=== PATIENT | female | born 1970 | race African-American/Black ===

== ENCOUNTER 2020-04-12 16:39 | Outpatient (CLI) | payer OTHER, SELFPAY ==
[2020-04-12 17:18] LABS: Basophils Percent Auto 0.5 % (0.2-1.2); Eosinophils Absolute Auto 0.3 K/mm3 (0-0.3); Eosinophils Percent Auto 8.8 % (0-4.4); Hematocrit 31.1 % (37.0-47.0); Hemoglobin 9.4 g/dL (12.0-15.0); Immature Granulocyte Absolute 0.01 K/mm3 (0.00-0.031); Immature Granulocyte Percent A 0.3 % (0-0.5); Lymphocytes Absolute Auto 1.83 K/mm3 (0.9-3.2); Lymphocytes Percent Auto 47.4 % (18.3-44.2); Mean Corpuscular HGB Conc 30.2 g/dl (32-36); Mean Corpuscular Hemoglobin 20.7 pg (26-34); Mean Corpuscular Volume 68.4 fl (80-100); Mean Platelet Volume 9.2 fl (7.4-10.4); Monocytes Absolute Auto 0.4 K/mm3 (0.1-0.6); Monocytes Percent Auto 11.4 % (2.6-8.5); Neutrophils Absolute Auto 1.2 K/mm3 (1.3-6.7); Neutrophils Percent Auto 31.6 % (45.5-73.1); Platelet Count Result 374 k/mm3 (150-375); Red Blood Count 4.55 M/mm3 (4.2-5.4); Red Cell Distribution Width 18.7 % (11.5-14.5); White Blood Count 3.9 K/mm3 (4.5-10.0)
[2020-04-12 17:30] LABS: Hemoglobin A1C 5.6 % (<5.7)
[2020-04-12 17:31] LABS: Anion Gap 8 mmol/L (8-16); Blood Urea Nitrogen 13 mg/dL (7-17); Calcium 9.1 mg/dL (8.4-10.2); Carbon Dioxide 27 mmol/L (22-30); Chloride 103 mmol/L (98-107); Cholesterol 213 mg/dL (0-200); Estimated Glomerular Filt Rate > 60; Glucose 108 mg/dL (65-105); HDL Direct 65 mg/dL; Potassium 3.6 mmol/L (3.4-5.0); Sodium 138 mmol/L (137-145); Triglycerides 74 mg/dL (<150)
[2020-04-12 17:42] LABS: LDL Cholesterol Direct 110 mg/dL
[2020-04-12 18:26] LABS: MALB Creatinine Ratio < 5.3 mg/g (0-30); Microalbumin Urine Random < 6.0 mg/L (0-16.7)
== END 2020-04-12 16:40 | disposition home or self-care (01) ==
DX: N92.0 Excessive and frequent menstruation with regular cycle (principal); Z13.220 Encounter for screening for lipoid disorders
CPT/HCPCS: 36415; 80048; 80061; 82043; 83036; 85025

== ENCOUNTER 2020-06-22 10:25 | Outpatient (CLI) | payer OTHER, SELFPAY ==
[2020-06-22 10:51] LABS: Basophils Percent Auto 0.7 % (0.2-1.2); Eosinophils Absolute Auto 0.3 K/mm3 (0-0.3); Eosinophils Percent Auto 5.4 % (0-4.4); Hemoglobin 13.1 g/dL (12.0-15.0); Immature Granulocyte Absolute 0.01 K/mm3 (0.00-0.031); Immature Granulocyte Percent A 0.2 % (0-0.5); Lymphocytes Absolute Auto 1.37 K/mm3 (0.9-3.2); Lymphocytes Percent Auto 25.5 % (18.3-44.2); Mean Corpuscular HGB Conc 31.2 g/dl (32-36); Mean Corpuscular Hemoglobin 23.9 pg (26-34); Mean Corpuscular Volume 76.6 fl (80-100); Mean Platelet Volume 8.6 fl (7.4-10.4); Monocytes Absolute Auto 0.6 K/mm3 (0.1-0.6); Monocytes Percent Auto 11.7 % (2.6-8.5); Neutrophils Percent Auto 56.5 % (45.5-73.1); Platelet Count Result 291 k/mm3 (150-375); Red Blood Count 5.48 M/mm3 (4.2-5.4); Red Cell Distribution Width 20.5 % (11.5-14.5); White Blood Count 5.4 K/mm3 (4.5-10.0)
[2020-06-22 10:55] LABS: Add Urine Microscopic? NO; Appearance Urine Clear (Clear); Bilirubin Urine Negative (Negative); Blood Urine Negative (Negative); Color Urine Yellow (Yellow); Glucose Urine UA Negative (Negative); Ketones Urine Negative (Negative); Leukocyte Esterase Ur Negative LEU/UL (NEGATIVE); Nitrate Urine Negative (Negative); Protein Urine Negative (Negative); RBC Urine 0-2 /hpf (0-2); Squamous Epithelial Cell Urine Occasional /hpf (Few); Urobilinogen Urine Negative mg/dL (<2.0); WBC Urine 0-3 /hpf (0-3)
[2020-06-22 11:05] LABS: Alanine Aminotransferase 25 U/L (4-35); Albumin Level 4.6 g/dL (3.5-5.1); Alkaline Phosphatase 44 U/L (38-126); Anion Gap 5 mmol/L (8-16); Aspartate Amino Transferase 28 U/L (14-36); Bilirubin,Total 0.7 mg/dL (0.2-1.3); Blood Urea Nitrogen 13 mg/dL (7-17); Calcium 9.8 mg/dL (8.4-10.2); Carbon Dioxide 29 mmol/L (22-30); Chloride 104 mmol/L (98-107); Estimated Glomerular Filt Rate > 60; Glucose 114 mg/dL (65-105); Potassium 3.8 mmol/L (3.4-5.0); Sodium 138 mmol/L (137-145)
[2020-06-22 11:42] LABS: Iron 148 ug/dL (37-170)
[2020-06-22 11:53] LABS: Percent Iron Saturation 36 % (20-50)
== END 2020-06-22 10:26 | disposition home or self-care (01) ==
DX: R10.11 Right upper quadrant pain (principal); J45.20 Mild intermittent asthma, uncomplicated; D50.9 Iron deficiency anemia, unspecified; I10 Essential (primary) hypertension; Z00.00 Encounter for general adult medical examination without abnormal findings
CPT/HCPCS: 36415; 80053; 81003; 83540; 83550; 85025

== ENCOUNTER 2021-06-20 10:37 | Outpatient (CLI) | payer OTHER, SELFPAY ==
[2021-06-20 11:07] LABS: Basophils Percent Auto 0.8 % (0.2-1.2); Eosinophils Absolute Auto 0.2 K/mm3 (0-0.3); Hemoglobin 11.9 g/dL (12.0-15.0); Immature Granulocyte Absolute 0.01 K/mm3 (0.00-0.031); Immature Granulocyte Percent A 0.3 % (0-0.5); Lymphocytes Absolute Auto 1.94 K/mm3 (0.9-3.2); Lymphocytes Percent Auto 50.3 % (18.3-44.2); Mean Corpuscular HGB Conc 32.2 g/dl (32-36); Mean Corpuscular Hemoglobin 24.4 pg (26-34); Mean Platelet Volume 8.8 fl (7.4-10.4); Monocytes Absolute Auto 0.4 K/mm3 (0.1-0.6); Monocytes Percent Auto 9.8 % (2.6-8.5); Neutrophils Absolute Auto 1.3 K/mm3 (1.3-6.7); Neutrophils Percent Auto 32.8 % (45.5-73.1); Platelet Count Result 353 k/mm3 (150-375); Red Blood Count 4.87 M/mm3 (4.2-5.4); Red Cell Distribution Width 14.4 % (11.5-14.5); White Blood Count 3.9 K/mm3 (4.5-10.0)
[2021-06-20 11:18] LABS: Alanine Aminotransferase 28 U/L (4-35); Albumin Level 4.5 g/dL (3.5-5.1); Alkaline Phosphatase 40 U/L (38-126); Anion Gap 7 mmol/L (8-16); Aspartate Amino Transferase 30 U/L (14-36); Bilirubin,Total 0.6 mg/dL (0.2-1.3); Blood Urea Nitrogen 12 mg/dL (7-17); Calcium 9.9 mg/dL (8.4-10.2); Carbon Dioxide 30 mmol/L (22-30); Chloride 100 mmol/L (98-107); Cholesterol 207 mg/dL (0-200); Estimated Glomerular Filt Rate > 60; Glucose 110 mg/dL (65-110); HDL Direct 70 mg/dL; Potassium 3.6 mmol/L (3.4-5.0); Sodium 137 mmol/L (137-145); Triglycerides 81 mg/dL (<150)
[2021-06-20 11:29] LABS: LDL Cholesterol Direct 102 mg/dL
[2021-06-20 11:31] LABS: Hemoglobin A1C 5.4 % (<5.7)
[2021-06-20 11:48] LABS: Thyroid Stimulating Hormone 0.828 uIU/mL (0.465-4.680)
[2021-06-20 11:51] LABS: Vitamin D 25 Hydroxy 51.8 ng/mL
== END 2021-06-20 10:38 | disposition home or self-care (01) ==
LOC: ANHLAB 10:42
PROVIDERS: PCP Obstetrics & Gynecology; Visit Provider Obstetrics & Gynecology
DX: Z00.00 Encounter for general adult medical examination without abnormal findings (principal)
CPT/HCPCS: 36415; 80053; 80061; 82306; 83036; 84443; 85025

== ENCOUNTER 2022-09-19 08:48 | Outpatient (CLI) | payer OTHER, SELFPAY ==
[2022-09-19 09:09] LABS: Hematocrit 33.3 % (37.0-47.0); Mean Corpuscular Hemoglobin 20.9 pg (26-34); Mean Corpuscular Volume 69.7 fl (80-100); Mean Platelet Volume 8.7 fl (7.4-10.4); Platelet Count Result 340 k/mm3 (150-375); Red Blood Count 4.78 M/mm3 (4.2-5.4); Red Cell Distribution Width 18.2 % (11.5-14.5); White Blood Count 6.2 K/mm3 (4.5-10.0)
[2022-09-19 09:24] LABS: Alanine Aminotransferase 23 U/L (6-35); Albumin Level 4.4 g/dL (3.5-5.1); Alkaline Phosphatase 48 U/L (38-126); Anion Gap 5 mmol/L (8-16); Aspartate Amino Transferase 25 U/L (14-36); Bilirubin,Total 0.4 mg/dL (0.2-1.3); Blood Urea Nitrogen 21 mg/dL (7-17); Carbon Dioxide 27 mmol/L (22-30); Chloride 100 mmol/L (98-107); Cholesterol 193 mg/dL (0-200); Estimated Glomerular Filt Rate > 60; Glucose 108 mg/dL (65-110); HDL Direct 61 mg/dL; Potassium 3.6 mmol/L (3.4-5.0); Sodium 132 mmol/L (137-145); Triglycerides 82 mg/dL (<150)
[2022-09-19 09:28] LABS: Hemoglobin A1C 5.8 % (<5.7)
[2022-09-19 09:35] LABS: LDL Cholesterol Direct 88 mg/dL
[2022-09-19 09:53] LABS: Vitamin D 25 Hydroxy 45.4 ng/mL
[2022-09-19 09:54] LABS: Thyroid Stimulating Hormone 0.762 uIU/mL (0.465-4.680)
[2022-09-19 10:31] LABS: Creatinine Urine 232.4 mg/dL
[2022-09-19 10:35] LABS: MALB Creatinine Ratio 40.8 mg/g (0-30); Microalbumin Urine Random 94.9 mg/L (0-16.7)
== END 2022-09-19 08:49 | disposition home or self-care (01) ==
LOC: ANHLAB 08:49
PROVIDERS: PCP Obstetrics & Gynecology; Visit Provider Obstetrics & Gynecology
DX: R53.83 Other fatigue (principal); Z13.220 Encounter for screening for lipoid disorders; R39.9 Unspecified symptoms and signs involving the genitourinary system
CPT/HCPCS: 36415; 80053; 80061; 82043; 82306; 83036; 84443; 85027

== ENCOUNTER 2023-03-06 10:24 | Outpatient (CLI) | payer OTHER, SELFPAY ==
[2023-03-06 11:03] LABS: Hematocrit 39.2 % (37.0-47.0); Hemoglobin 12.2 g/dL (12.0-15.0); Mean Corpuscular HGB Conc 31.1 g/dl (32-36); Mean Corpuscular Hemoglobin 24.4 pg (26-34); Mean Corpuscular Volume 78.4 fl (80-100); Mean Platelet Volume 9.3 fl (7.4-10.4); Platelet Count Result 316 k/mm3 (150-375); Red Cell Distribution Width 18.6 % (11.5-14.5); White Blood Count 3.5 K/mm3 (4.5-10.0)
[2023-03-06 11:14] LABS: Alanine Aminotransferase 33 U/L (6-35); Albumin Level 4.3 g/dL (3.5-5.1); Alkaline Phosphatase 44 U/L (38-126); Anion Gap 5 mmol/L (8-16); Aspartate Amino Transferase 30 U/L (14-36); Bilirubin,Total 0.6 mg/dL (0.2-1.3); Blood Urea Nitrogen 15 mg/dL (7-17); Calcium 9.3 mg/dL (8.4-10.2); Carbon Dioxide 31 mmol/L (22-30); Chloride 103 mmol/L (98-107); Estimated Glomerular Filt Rate > 60; Glucose 109 mg/dL (65-110); Potassium 3.7 mmol/L (3.4-5.0); Sodium 139 mmol/L (137-145)
[2023-03-06 11:15] LABS: Cholesterol 224 mg/dL (0-200); HDL Direct 67 mg/dL; Triglycerides 72 mg/dL (<150)
[2023-03-06 11:26] LABS: LDL Cholesterol Direct 108 mg/dL
[2023-03-06 11:29] LABS: Hemoglobin A1C 5.7 % (<5.7)
[2023-03-06 11:30] LABS: Iron 63 ug/dL (37-170)
[2023-03-06 11:41] LABS: Percent Iron Saturation 15 % (20-50)
== END 2023-03-06 10:25 | disposition home or self-care (01) ==
LOC: ANHLAB 10:25
PROVIDERS: PCP Obstetrics & Gynecology; Visit Provider Family Medicine
DX: K44.9 Diaphragmatic hernia without obstruction or gangrene (principal); R00.2 Palpitations; R07.9 Chest pain, unspecified; R10.13 Epigastric pain
CPT/HCPCS: 36415; 80053; 80061; 83036; 83540; 83550; 85027

== ENCOUNTER 2023-04-18 21:43 | Observation (INO) | payer OTHER, SELFPAY ==
[2023-04-18] VITALS (12 sets, daily range): BP systolic 130–180; BP diastolic 85–99; PULSE 61–85; RESP 9–98; TEMP 36.6; O2SAT 97–100
--- NOTE | ~2023-04-18 | CT_ITS ---
Non-contrast CT scan of the Abdomen Clinical indication: Epigastric pain Technique: 2.5 mm axial scans were obtained through the abdomen without intravenous or oral contrast . Dose reduction technique was used on this scan by utilizing automated exposure control and iterativ e reconstruction technique. The dose-length product (DLP) was 482.05 mGy-cm. Findings: Images through the lung bases reveal no abnormalities. There is no evidence of renal or ureteral calculi. The kidneys and the ureters are nondilated. The liver, spleen, pancreas, gallbladder, and right adrenal gland appear normal. Possible small left adrenal adenoma. There is no aortic aneurysm. Visualized bowel loops are unremarkable. No ascites. Impression: No acute abnormality. Possible small left adrenal adenoma. Reviewed, dictated and finalized at location . Impression: No acute abnormality. Possible small left adrenal adenoma.
--- NOTE | ~2023-04-18 | XR_ITS ---
Clinical Indication: Chest pressure PA and lateral views of the chest: Comparison: 03/04/2016 Findings: The lungs are clear, without evidence of focal consolidation or pleural effusion. Cardiome diastinal silhouette is within normal limits. Bones and soft tissues are unremarkable. Impression: Normal chest. Reviewed, dictated and finalized at location . Impression: Normal chest.
--- NOTE | 2023-04-18 21:44 | ECG_ITS ---
Measurements Intervals [place] Rate: 69 P: 30 TX: 185 QRS: 11 QRSD: 93 T: 12 QT: 421 QTc: 451 Interpretive Statements SINUS RHYTHM VOLTAGE CRITERIA FOR LVH BORDERLINE T WAVE ABNORMALITY- ANT/INF LEADS BORDERLINE ECG NO PREVIOUS ECG AVAILABLE FOR COMPARISON Electronically Signed On 04-19-2023 6:23:51 CDT by Justo Curtis D.O.
[2023-04-18 22:03] LABS: Basophils Percent Auto 0.6 % (0.2-1.2); Eosinophils Absolute Auto 0.5 K/mm3 (0-0.3); Eosinophils Percent Auto 10.9 % (0-4.4); Hematocrit 39.7 % (37.0-47.0); Hemoglobin 12.7 g/dL (12.0-15.0); Immature Granulocyte Absolute 0.01 K/mm3 (0.00-0.031); Immature Granulocyte Percent A 0.2 % (0-0.5); Lymphocytes Percent Auto 47.1 % (18.3-44.2); Mean Corpuscular Hemoglobin 25.4 pg (26-34); Mean Corpuscular Volume 79.4 fl (80-100); Mean Platelet Volume 9.4 fl (7.4-10.4); Monocytes Absolute Auto 0.5 K/mm3 (0.1-0.6); Monocytes Percent Auto 10.1 % (2.6-8.5); Neutrophils Absolute Auto 1.5 K/mm3 (1.3-6.7); Neutrophils Percent Auto 31.1 % (45.5-73.1); Platelet Count Result 295 k/mm3 (150-375); Red Cell Distribution Width 16.5 % (11.5-14.5); White Blood Count 4.7 K/mm3 (4.5-10.0)
[2023-04-18 22:14] LABS: Prothrombin Time 13.1 Seconds (11.1-14.7)
[2023-04-18 22:15] LABS: Partial Thromboplastin Time 27.6 SECONDS (22.3-36.8)
[2023-04-18 22:16] LABS: Alanine Aminotransferase 32 U/L (6-35); Albumin Level 4.7 g/dL (3.5-5.1); Alkaline Phosphatase 49 U/L (38-126); Anion Gap 6 mmol/L (8-16); Aspartate Amino Transferase 35 U/L (14-36); Bilirubin,Total 0.4 mg/dL (0.2-1.3); Blood Urea Nitrogen 15 mg/dL (7-17); Calcium 9.8 mg/dL (8.4-10.2); Carbon Dioxide 31 mmol/L (22-30); Chloride 101 mmol/L (98-107); Estimated CRCL calculation 71 ml/min; Estimated Glomerular Filt Rate > 60; Glucose 109 mg/dL (65-110); Lipase 67 U/L (23-300); Potassium 3.9 mmol/L (3.4-5.0); Sodium 138 mmol/L (137-145)
[2023-04-18 22:28] LABS: Troponin I < 0.012 ng/mL (0.000-0.034)
[2023-04-18] MEDS: ONDANSETRON INJ 4 MG/2 ML VIAL IV PUSH (22:46)
--- NOTE | 2023-04-18 22:58 | ED.CHESTPAIN ---
HPI - Chest Pain General Chief Complaint: Chest Pain Stated Complaint: chest pressure Time Seen by Provider: 04/18/23 21:48 History of Present Illness HPI narrative: Patient presents to the emergency department with chest pain. Pain has not been ongoing for the past couple hours. Epigastric region radiates into her midsternal chest area. Nothing alleviates or worsens the pain. She has been taking home GI medications without improvement. Denies shortness of breath fevers chills or cough. Denies history of CAD. Denies family history of early CAD. Patient does not smoke. She is very pleasant and overall her exam is grossly benign. Related Data Home Medications Medication Instructions Recorded Confirmed esomeprazole magnesium 20 mg 20 mg PO DAILY PRN 02/23/23 capsule,delayed release (Nexium 24HR) hydrochlorothiazide 25 mg tablet 25 mg PO DAILY 02/23/23 Allergies Allergy/AdvReac Type Severity Reaction Status Date / Time Penicillins Allergy Unknown Unknown Verified 04/18/23 22:08 Review of Systems Review of Systems: CONSTITUTIONAL: Denies fever, chills, or sweats. EYES: Denies visual changes, redness, or discharge. ENT: Denies rhinorrhea, congestion, sore throat, or otalgia. CARDIOVASCULAR: Denies palpitations, or edema. Positive for chest pain RESPIRATORY: Denies cough or dyspnea. GASTROINTESTINAL: Denies abdominal pain, nausea, vomiting, or diarrhea. GENITOURINARY: Denies dysuria or hematuria. SKIN: Denies rash or itching. MUSCULOSKELETAL: Denies back pain, joint pain, or myalgia. NEUROLOGIC: Denies headache, numbness, or weakness. PSYCHIATRIC: Denies anxiety or depression. [facility] Past Medical History Medical History (Updated 04/18/23 @ 23:02 by Betty Real MD) Active asthma BP (high blood pressure) GERD (gastroesophageal reflux disease) Family History Family History (System 03/01/23 @ 13:31 by Beth Lorenzo) Father Hypertension Cerebrovascular accident Mother Hypertension Grandparent Diabetes mellitus Social History Social History (System 03/01/23 @ 13:31 by Beth Lorenzo) Smoking packs per day: 0 Smoking cigarettes per day: 0.0 Years smoked: 0 Smoking pack-years: 0.00 Smoking status: Never smoker Second hand tobacco smoke exposure: No Alcohol intake: current Drinks per week: 1 Substance use: never Substance use type: does not use Lack of Transportation: No Lack of Food: Never True Current Housing: I Have Housing Concerned About Future Housing: No Difficulty Paying Gas/Electric Bills: No Difficulty Paying for Meds: No Currently Unemployed: No Education: Master's Degree or Higher Difficulty w/ Childcare or Family Care: No Exam Narrative: GENERAL: Well-appearing, well-nourished, and in no acute distress. HEAD: Normocephalic, atraumatic. EYES: PERRLA and EOMI. ENT: Nares clear, no rhinorrhea or epistaxis. Mucous membranes moist. NECK: Supple. CHEST: Clear to auscultation. No respiratory distress. HEART: Regular rate and rhythm. ABDOMEN: mild epigastric tenderness EXTREMITIES: Normal range of motion. No edema. SKIN: Warm, dry, no rash. NEURO: No focal deficits. Alert and oriented x3. PSYCH: Normal mood and affect. Course Course Emergency Course: Differential diagnosis includes but not limited to pancreatitis, CAD, chest wall pain, reflux Telemetry ordered due to chest pain to evaluate for dysrhythmias. Evaluated by myself. Rhythm nsr Rate 60 Vital Signs Vital signs: Vital Signs Temperature 36.6 C 04/18/23 22:01 Pulse Rate 67 04/18/23 22:01 Respiratory Rate 17 04/18/23 22:01 Blood Pressure 180/97 H 04/18/23 22:01 Pulse Oximetry 99 04/18/23 22:01 Oxygen Delivery Room Air 04/18/23 22:01 Temperature 36.6 C 04/18/23 22:01 Pulse Rate 62 04/19/23 03:21 Respiratory Rate 13 04/19/23 03:21 Blood Pressure 123/77 04/19/23 03:21 Pulse Oximetry 98 04/19/23 03:21 Oxygen D
[2023-04-18] MEDS: ASPIRIN 81 MG CHEWABLE TABLET 324 MG PO (23:22)
[2023-04-18] MEDS: NITROGLYCERIN SL 0.4 MG TABLET SUBLINGUAL (23:24)
--- NOTE | 2023-04-18 23:26 | PC.NURSE ---
2324 - pt rates pressure 5/10. pt took first sublingual nitro with no relief. 2329 - pt took second sublingual nitro w relief. States pressure is 2/10 on pain scale and feels as if she can take a deeper breath , but experiencing headache. notified.
[2023-04-19] VITALS (29 sets, daily range): BP systolic 114–164; BP diastolic 55–96; PULSE 54–86; RESP 10–19; TEMP 35.8–37.3; O2SAT 95–100
[2023-04-19 01:33] LABS: Troponin I < 0.012 ng/mL (0.000-0.034)
[2023-04-19] MEDS: LIDOCAINE HCL 2% VISC SOLN 15 ML UDC PO (01:40)
--- NOTE | 2023-04-19 02:18 | ECG_ITS ---
Measurements Intervals [place] Rate: 59 P: 35 MA: 182 QRS: 26 QRSD: 93 T: 43 QT: 397 QTc: 396 Interpretive Statements SINUS BRADYCARDIA VOLTAGE CRITERIA FOR LVH BORDERLINE ST-T WAVE ABNORMALITY- DIFUSE LEADS BORDERLINE ECG COMPARED TO ECG 04/18/2023 21:48:59 SINUS BRADYCARDIA NOW PRESENT Electronically Signed On 04-19-2023 6:33:30 CDT by Justo Curtis D.O.
[2023-04-19] MEDS: NITROGLYCERIN SL 0.4 MG TABLET SUBLINGUAL (02:27)
--- NOTE | 2023-04-19 02:31 | PC.NURSE ---
This RN entered pt room and pt was tearful w/c/o epigastric tightness/pressure. EDP was notified and ordered another dose of sublingual nitro. Pt was given nitro and had relief with x1 pill. Notified .
[2023-04-19] MEDS: ACETAMINOPHEN 325 MG TABLET 650 MG PO (03:54)
[2023-04-19] MEDS: NITROGLYCERIN OINTMENT 1 INCH DOSE 0.5 INCH TRANSDERM (03:55)
--- NOTE | 2023-04-19 04:35 | ADMGEN ---
This patient, Eran Clark, was admitted to IMU Room 210-01 at 0428. Patient/family oriented to hospital policies and general routines including ID bracelet, bed and alarms, visiting hours, pain management, procedures, bathroom and other care routines, personal items, smoking policy, room service/diet, and visiting hours. Information on how to activate the Rapid Response Team has been discussed. Patient/Family are encouraged to report perceived risks to care and to ask questions if they do not understand what they are told or what they should do.
[2023-04-19 05:27] LABS: Troponin I 0.035 ng/mL (0.000-0.034)
--- NOTE | 2023-04-19 08:49 | PM.CNCAR ---
Assessment and Plan Assessment and plan (1) Chest pain: Qualifiers: Chest pain type: other chest pain Qualified Code(s): R07.89 - Other chest pain Code(s): R07.9 - Chest pain, unspecified Status: Acute Plan this is a 52-year-old lady without previous cardiac history is with hypertension being managed with thiazide. Been having intermittent nonexertional chest pain for about a month. Concern regarding coronary disease is now present because of this symptoms, modest troponin elevation and precordial T-wave abnormality. After discussing this with the patient my recommendation is to proceed with a coronary angiogram. She understands this and is agreeable. Chris Haskins MD [facility] History of Present Illness History of Present Illness Consult date/time: 04/19/23 08:49 Reason For Visit: Chest Pain Narrative: This is a 52-year-old female with a history of hypertension being treated with hydrochlorothiazide but no prior cardiac history. She came to the hospital yesterday because of chest pain. Patient has been having episodes of intermittent nonexertional chest discomfort for about a month or so. The episodes are described as a central pressure-like pain in the substernal region that seems to be intermittently occurring without exertional activity. She was considering that this had to do with esophageal reflux and has increased dosage of famotidine that she was taking for this without any improvement. Yesterday she had symptoms of this nature that were present for most of the day for she came into the emergency room for evaluation. In the emergency room her electrocardiogram was negative as were her troponins and she was essentially asymptomatic and admitted to the hospital. Following admission it was noted that her 3rd troponin level was slightly out of normal range. Her 2nd EKG showed some nonspecific but new precordial T-wave inversions. In this setting I am seeing her in consultation. Review of Systems Constitutional: Constitutional: Reports no additional constitutional complaints Eyes: Eyes: Reports no additional eye complaints ENT: Reports system reviewed and no additional complaints, except as documented Cardiovascular: Cardiovascular: Reports as per HPI Respiratory: Respiratory: Reports no additional respiratory complaints Gastrointestinal: Gastrointestinal: Reports no additional gastrointestinal complaints Musculoskeletal: Musculoskeletal: Reports no additional musculoskeletal complaints Integumentary/Breasts: Skin/Breast: Reports system reviewed and no additional complaints, except as docu Neurologic: Reports system reviewed and no additional complaints, except as documented Endocrine: Endocrine: Reports no additional endocrine complaints Hematologic/Lymphatic: Hematologic/Lymphatic: Reports no additional hematologic/lymphatic complaints Allergic/Immunologic: Allergic/Immunologic: Reports no additional allergic/immunologic complaints [facility] Past Medical History Medical History (Updated 04/18/23 @ 23:02 by Betty Real MD) Active asthma BP (high blood pressure) GERD (gastroesophageal reflux disease) Family History Family History (Updated 04/19/23 @ 04:53 by Cierra Poole RN) Father Hypertension Cerebrovascular accident Multiple myeloma Mother Hypertension Grandparent Diabetes mellitus Sibling Multiple myeloma Social History Social History (System 03/01/23 @ 13:31 by Beth Lorenzo) Smoking packs per day: 0 Smoking cigarettes per day: 0.0 Years smoked: 0 Smoking pack-years: 0.00 Smoking status: Never smoker Second hand tobacco smoke exposure: No Alcohol intake: current Drinks per week: 1 Substance use: current Substance use type: does not use Lack of Transportation: No Lack of Food: Never True Current Housing: I Have Housing Concerned About Future Housing: No Difficulty Paying Gas/Electric Bills: No Difficulty
--- NOTE | 2023-04-19 08:55 | WPDMODSED ---
Moderate Sedation Note-Pt Data Patient Data Diagnosis: intermittent chest pain Present Complaint: intermittent nonexertional chest pain Procedure to be performed/Plan: left heart catheterization Allergies Allergy/AdvReac Type Severity Reaction Status Date / Time Penicillins Allergy Unknown Unknown Verified 04/18/23 22:08 Home Medications Medication Instructions Recorded Confirmed Type hydrochlorothiazide 25 mg tablet 25 mg PO DAILY 02/23/23 04/19/23 History albuterol sulfate 90 mcg/actuation 1 puff inhalation QID PRN SOB 04/19/23 04/19/23 History aerosol inhaler famotidine 20 mg tablet (Pepcid) 20 mg PO BID 04/19/23 04/19/23 History Sedation/Anesthesia: No previous sedation/anesthesia problems (including family history). [facility] Past Medical History Medical History (Updated 04/18/23 @ 23:02 by Betty Real MD) Active asthma BP (high blood pressure) GERD (gastroesophageal reflux disease) Family History Family History (Updated 04/19/23 @ 04:53 by Cierra Poole RN) Father Hypertension Cerebrovascular accident Multiple myeloma Mother Hypertension Grandparent Diabetes mellitus Sibling Multiple myeloma Social History Social History (System 03/01/23 @ 13:31 by Beth Lorenzo) Smoking packs per day: 0 Smoking cigarettes per day: 0.0 Years smoked: 0 Smoking pack-years: 0.00 Smoking status: Never smoker Second hand tobacco smoke exposure: No Alcohol intake: current Drinks per week: 1 Substance use: current Substance use type: does not use Lack of Transportation: No Lack of Food: Never True Current Housing: I Have Housing Concerned About Future Housing: No Difficulty Paying Gas/Electric Bills: No Difficulty Paying for Meds: No Currently Unemployed: No Education: Master's Degree or Higher Difficulty w/ Childcare or Family Care: No Spiritual care concerns: No Mod Sed Physical Exam Physical Exam Pre Procedural Exam: Normal: Appearance, Neck, Throat, Airway, Lungs, Heart Size, Heart Rate, Heart Rhythm, Neuro Exam and Extremities Hours since solid foods: 12 Hours since liquid intake: 12 Mallampati Classification: class II Internal Medicine - PN: Obj Da Vital Signs Vital Signs: Vital Signs - 24 hr 04/18/23 22:01 04/18/23 22:08 04/18/23 23:20 Temperature 36.6 C Pulse Rate 67 68 Respiratory Rate 17 98 H Blood Pressure 180/97 H 156/87 H Pulse Oximetry 99 98 97 Oxygen Delivery Room Air Room Air 04/18/23 23:28 04/18/23 23:32 04/18/23 22:11 Temperature Pulse Rate 63 81 65 Respiratory Rate 16 16 15 Blood Pressure 146/97 H 130/90 170/99 H Pulse Oximetry 100 97 97 Oxygen Delivery 04/18/23 22:38 04/18/23 22:41 04/18/23 23:01 Temperature Pulse Rate 72 82 61 Respiratory Rate 18 19 10 L Blood Pressure 170/97 H 167/93 H 152/85 H Pulse Oximetry 100 98 98 Oxygen Delivery 04/18/23 23:21 04/18/23 23:28 04/18/23 23:33 Temperature Pulse Rate 62 65 85 Respiratory Rate 11 L 9 L 14 Blood Pressure 156/87 H 146/97 H 130/90 Pulse Oximetry 100 99 99 Oxygen Delivery 04/18/23 23:41 04/19/23 00:01 04/19/23 00:21 Temperature Pulse Rate 69 65 62 Respiratory Rate 9 L 10 L 12 Blood Pressure 135/86 141/82 H 128/81 Pulse Oximetry 99 99 99 Oxygen Delivery 04/19/23 00:41 04/19/23 01:21 04/19/23 02:08 Temperature Pulse Rate 60 60 74 Respiratory Rate 15 14 14 Blood Pressure 139/78 144/83 H 164/96 H Pulse Oximetry 100 98 98 Oxygen Delivery 04/19/23 02:24 04/19/23 02:32 04/19/23 01:41 Temperature Pulse Rate 70 80 82 Respiratory Rate 18 14 14 Blood Pressure 162/87 H 134/88 153/88 H Pulse Oximetry 100 97 97 Oxygen Delivery 04/19/23 02:01 04/19/23 02:09 04/19/23 02:25 Temperature Pulse Rate 69 78 65 Respiratory Rate 16 19 13 Blood Pressure 151/89 H 164/96 H 162/87 H Pulse Oximetry 98 100 100 Oxygen Delivery 04/19/23 02:32 04/19/23 02:41 04/19/23 03:01 Temper
--- NOTE | 2023-04-19 10:50 | PC.NURSE ---
Patient off floor to research laboratory manager.
--- NOTE | 2023-04-19 12:17 | P.PCNCC_ITS ---
Cardiac Cath Procedure Note Date of procedure:: 04/19/23 Performing physician:: Chris Haskins MD Indication:: chest pain with modest troponin elevation Brief clinical history:: this is a 52-year-old lady with history of mild hypertension who entered the hospital with an episode of chest pain. Following the incident there was a modest rise in her troponin level and very modest but the new T T-wave inversion noted electrocardiographically. For this reason an angiogram has been recommended Procedure Procedure performed:: left ventriculogram coronary angiogram Angio-Seal to right femoral artery Sedation/Medication given:: fentanyl 50 mg Versed 2 mg case start time 11:59 a.m. case end time 12:14 p.m. sedation provided by Daina Murry RN, trained observer Access site:: right femoral artery Estimated blood loss:: 20 cc Procedure note:: patient was brought to the cardiac catheterization lab in the postabsorptive s maddox where the right femoral triangle was prepared and draped in the normal fashion. Anesthesia was provided with 1% lidocaine infiltrated normally. Using the modified Seldinger technique a 5 [place] sheath was placed into the right femoral artery and after this left heart catheterization was carried out. I used a 5 [place] angled pigtail catheter to document left-sided hemodynamics and to engage left ventricle in end for injection GASTELUM projection. Following this the left coronary was engaged Using a 5 [place] FL4 catheter and injected in multiple projections. The right coronary artery was engaged and injected using standard JR4 catheter in orthogonal projections. following this the case was terminated the cineangiograms were reviewed. An angiogram was performed to the femoral artery through the sheath after which a 6 [place] Angio-Seal device was deployed with a good hemostatic result. There were no signs of any procedural complications and no evidence hematoma upon completion of the procedure Findings:: hemodynamics: Central aortic pressure 82827 left ventricle 152/0 end- diastolic pressure 8 there is no gradient on pullback across the aortic valve. Left ventricle: The LV is normal in size all segments contract properly the global ejection fraction is 65% with no regional wall motion abnormalities. The left main coronary artery is widely patent and of normal caliber. The left anterior descending is a moderate caliber artery extending down to the apex the LAD and its branches are smooth and angiographically normal. The circumflex is a medium caliber vessel giving rise to the marginal branches the circumflex system is smooth and angiographically normal. The right coronary artery is large in caliber and dominant to the posterior circulation. The RCA is also smooth and angiographically normal. Conclusion:: 1. right coronary artery dominant circulation with no angiographic abnormalities 2. normal left ventricular systolic contractility Chris Haskins MD [facility]
--- NOTE | 2023-04-19 12:30 | SUR.PHASEII ---
Arrives in PATIENT REGISTRATION REPRESENTATIVE post cardiac cath. Vitals stable. Arterial puncture site d/i with Angioseal. No pain, bleeding, swelling or bruising rt groin. Rt pedal pulse strong and regular.
[2023-04-19] MEDS: SODIUM CHLORIDE 0.9% IV 1,000 ML 125 ML IV CONT (13:32)
--- NOTE | 2023-04-19 14:51 | PM.DS ---
DS: Admitting Diagnosis Discharge Date 04/19/23 Admitting Diagnosis chest pain DS: Discharge Diagnosis Discharge Diagnosis (1) Chest pain: Qualifiers: Chest pain type: other chest pain Qualified Code(s): R07.89 - Other chest pain Code(s): R07.9 - Chest pain, unspecified Status: Acute Assessment and Plan: This is a 52-year-old lady without previous cardiac history is with hypertension being managed with thiazide. She has been having intermittent nonexertional chest pain for about a month. Concern regarding coronary disease is now present because of this symptoms, modest troponin elevation and precordial T-wave abnormality. She was taken to the manufacturing laborer for coronary angiogram and she was not found to have any coronary artery disease. No further cardiac workup recommended at this time. Okay for discharge today. DS: Summary Hospital Course Hospital Course: This is a 52-year-old lady without previous cardiac history is with hypertension being managed with thiazide. Been having intermittent nonexertional chest pain for about a month. Concern regarding coronary disease is now present because of this symptoms, modest troponin elevation and precordial T-wave abnormality. She was taken to the manufacturing laborer for coronary angiogram and she was not found to have any coronary artery disease. Time Spent with Patient Time attestation: Total time spent providing and/or coordinating discharge services: Exam Const: General: comfortable and no acute distress Other: Well-developed well-nourished pleasant black female no apparent distress of any kind HENMT: Mouth: Yes moist mucous membranes Eyes: Sclera: sclerae normal Pupils: Equal, round and reactive pupils present Neck: Neck: supple and no JVD Other: carotid pulses are without bruits bilaterally Resp: Effort & Inspection: normal respiratory effort Auscultation: clear to auscultation bilaterally Cardio: Rate: regular rate Rhythm: regular rhythm Other: PMI is of normal location and activity no murmur no gallop GI: Auscultation: normal bowel sounds Neuro: Cranial nerves: Yes Equal, round and reactive pupils present Other: alert and oriented x3 Extrem: General: normal to inspection DS: Data Data Completed and Pending Completed studies during hospitalization: Left Heart Cath Findings: hemodynamics:? ? Central aortic pressure 78096 left ventricle 152/0 end-diastolic pressure 8 there is no gradient on pullback across the aortic valve. Left ventricle:? ? The LV is normal in size all segments contract properly the global ejection fraction is 65% with no regional wall motion abnormalities. The left main coronary artery is widely patent and of normal caliber. The left anterior descending is a moderate caliber artery extending down to the apex the LAD and its branches are smooth and angiographically normal. The circumflex is a medium caliber vessel giving rise to the marginal branches the circumflex system is smooth and angiographically normal. ?The right coronary artery is large in caliber and dominant to the posterior circulation.? The RCA is also smooth and angiographically normal. Labs on day of discharge: Labs from last 24 hours 04/19/23 04/19/23 04/18/23 04:43 01:01 21:57 WBC RBC Hgb Hct MCV MCH MCHC RDW Plt Count MPV Immature Gran % (Auto) Neut % (Auto) Lymph % (Auto) [place] % (Auto) Eos % (Auto) Baso % (Auto) Lymph # (Auto) [place] # (Auto) Eos # (Auto) Baso # (Auto) Abs Immat Gran (auto) Absolute Neuts (auto) Absolute Nucleated RBC Nucleated RBC % PT 13.1 INR 1.0 APTT 27.6 Sodium 138 Potassium 3.9 Chloride 101 Carbon Dioxide 31 H Anion Gap 6 L BUN 15 Creatinine 0.90 Estim Creat Clear Calc 71 Estimated GFR > 60 Glucose 109 Calcium 9.8 Total Bilirubin 0.4 AST 35 ALT
== END 2023-04-19 16:17 | disposition home or self-care (01) ==
LOC: ANHED 22:29 → ANHIMU 04-19 03:56
PROVIDERS: Admitting Provider Specialist; Emergency Provider Emergency Medicine; PCP Family Medicine; Visit Provider Specialist
PROC: 4A023N7 Measurement of Cardiac Sampling and Pressure, Left Heart, Percutaneous Approach (ICD-10-PCS; CPT 93452; principal; 2023-04-19 11:00)
DX: R07.89 Other chest pain (principal); R10.13 Epigastric pain; I10 Essential (primary) hypertension; R00.1 Bradycardia, unspecified; K21.9 Gastro-esophageal reflux disease without esophagitis; J45.909 Unspecified asthma, uncomplicated; F10.90 Alcohol use, unspecified, uncomplicated; Z82.49 Family history of ischemic heart disease and other diseases of the circulatory system
CPT/HCPCS: 36415; 71046; 74150; 80053; 83690; 84484; 85025; 85610; 85730; 93005; 93458; 96374; 99285; A9270; C1760; C1887; C1894; G0269; G0378; J1644; J2250; J2405; J3010; J7030; J7040

== ENCOUNTER 2023-10-28 16:53 | Outpatient (CLI) | payer OTHER, SELFPAY ==
--- NOTE | ~2023-10-28 | XR_ITS ---
XR cervical spine 4-5V DATE: 10/28/2023 17:10 INDICATION: Left arm numbness. Radiculopathy. TECHNIQUE: AP, open-mouth, lateral views. Flexion and extension lateral views. COMPARISON: None FINDINGS: There is minimal dextroscoliosis. C1 and C2 are normally aligned and the odontoid process is intact. No fracture or dislocation or lock ed facet or prevertebral soft tissue swelling is detected. No instability on flexion or extension. Mild loss of interspace height and minimal anterior spurring and moderate posterior spurring is noted at C3-4 through C6-7. Uncovertebral joint spurring is noted particularly at C4-5 on the left. IMPRESSION: Prominent uncovertebral joint spurring is noted particularly at C4-5 on the left Multilevel moderate degenerative disc disease Reviewed, dictated and finalized at location B. IMPRESSION: Prominent uncovertebral joint spurring is noted particularly at C4- 5 on the left Multilevel moderate degenerative disc disease
[2023-10-28 17:13] LABS: Hematocrit 38.3 % (37.0-47.0); Hemoglobin 11.9 g/dL (12.0-15.0); Mean Corpuscular HGB Conc 31.1 g/dl (32-36); Mean Corpuscular Hemoglobin 24.2 pg (26-34); Mean Corpuscular Volume 77.8 fl (80-100); Mean Platelet Volume 8.9 fl (7.4-10.4); Platelet Count Result 297 k/mm3 (150-375); Red Blood Count 4.92 M/mm3 (4.2-5.4); White Blood Count 4.6 K/mm3 (4.5-10.0)
[2023-10-28 17:26] LABS: Alanine Aminotransferase 26 U/L (6-35); Albumin Level 4.4 g/dL (3.5-5.1); Alkaline Phosphatase 54 U/L (38-126); Anion Gap 2 mmol/L (8-16); Aspartate Amino Transferase 27 U/L (14-36); Bilirubin,Total 0.5 mg/dL (0.2-1.3); Blood Urea Nitrogen 15 mg/dL (7-17); Calcium 9.7 mg/dL (8.4-10.2); Carbon Dioxide 34 mmol/L (22-30); Chloride 100 mmol/L (98-107); Estimated Glomerular Filt Rate > 60; Glucose 106 mg/dL (65-110); Potassium 3.5 mmol/L (3.4-5.0); Sodium 136 mmol/L (137-145)
[2023-10-28 17:56] LABS: Thyroid Stimulating Hormone 0.743 uIU/mL (0.465-4.680)
== END 2023-10-28 16:54 | disposition home or self-care (01) ==
LOC: ANHLAB 16:54
PROVIDERS: PCP Family Medicine; Visit Provider Family Medicine
DX: M54.12 Radiculopathy, cervical region (principal); M50.30 Other cervical disc degeneration, unspecified cervical region
CPT/HCPCS: 36415; 72050; 80053; 84443; 85027

== ENCOUNTER 2023-11-05 09:06 | Outpatient (CLI) | payer OTHER, SELFPAY ==
--- NOTE | ~2023-11-05 | MR_ITS ---
EXAMINATION: MR cervical spine wo con DATE: 11/05/2023 12:46 INDICATION: Radiculopathy, cervical region. TECHNIQUE: Magnetic resonance imaging (MRI) of the cervical spine was performed without intravenous c ontrast. Sequences included sagittal T2-weighted FSE, sagittal T2-weighted FS FSE, sagittal T1-weight ed FSE, axial MERGE, and axial T2-weighted FSE. COMPARISON: Cervical spine radiographs 10/28/2023 FINDINGS: Bone alignment is normal. Vertebral body heights are normal. There is mildly decreased disc height from C3-C4 through C6-C7. The spinal cord signal intensity is normal. The following disc leve ls are specifically discussed: C2-C3: The disc does not extend beyond the endplate margin. There is mild bilateral uncovertebral bear nt osteoarthritis. There is mild bilateral facet joint osteoarthritis. There is no neural foraminal s tenosis. There is no central canal stenosis. C3-C4: The disc is bulging. There is mild bilateral uncovertebral joint osteoarthritis. There is mild right and moderate left facet joint osteoarthritis. There is mild bilateral neural foraminal stenosi s. There is moderate central canal stenosis with ventral and dorsal indentation of the spinal cord. C4-C5: The disc is bulging with superimposed right central extrusion. There is severe bilateral uncov ertebral joint osteoarthritis. There is mild bilateral facet joint osteoarthritis. There is mild righ t and moderate left neural foraminal stenosis. There is moderate central canal stenosis with ventral and dorsal indentation of the spinal cord. C5-C6: The disc is bulging. There is moderate bilateral uncovertebral joint osteoarthritis. There is mild right and moderate left facet joint osteoarthritis. There is mild bilateral neural foraminal chuck nosis. There is mild central canal stenosis. C6-C7: The disc is bulging. There is severe bilateral uncovertebral joint osteoarthritis. There is mo derate bilateral facet joint osteoarthritis. There is moderate bilateral neural foraminal stenosis. T here is mild central canal stenosis. C7-T1: The disc does not extend beyond the endplate margin. There is no uncovertebral joint osteoarth ritis. There is moderate right and severe left facet joint osteoarthritis. There is mild left neural foraminal stenosis. There is no central canal stenosis. IMPRESSION: 1. Moderate cervical spondylosis. Reviewed, dictated and finalized at location A.
== END 2023-11-05 09:07 ==
LOC: GOSHIMG 09:07
PROVIDERS: PCP Family Medicine; Visit Provider Family Medicine
DX: M47.22 Other spondylosis with radiculopathy, cervical region (principal)
CPT/HCPCS: 72141

== ENCOUNTER 2024-01-10 10:15 | Outpatient (RCR) | payer OTHER, SELFPAY ==
--- NOTE | 2023-10-18 11:16 | OPREHPOC ---
Outpatient Therapy Plan of Care This is a Multidisciplinary Plan of Care that may contain components documented by all disciplines (PT, OT, and ST.) PT Problem 1 PT Problem #1 Knowledge Deficit PT Goal 1 Goal 1* indep with HEP 2* good posture with exercises PT Problem 2 PT Problem #2 Pain PT Goal 1 Goal 1* pt report pain at worst of 4/10 2* self assessment Neck Disability Index score of 10% 3* radicular pain into L UE to elbow at worst PT Problem 3 PT Problem #3 Impaired Flexibility PT Goal 1 Goal increase cervical ROM to improve work, driving and home task abilities 1* cervical rotation to L 70' NO pain increase with 3 reps: 2* cervical rotation L 3* cervical flexion 4* cervical extension PT Problem 4 PT Problem #4 Impaired Strength PT Goal 1 Goal increase cervical-thoracic strength to improve posture and stabilization of upper quadrant: 1* pt perform 20 reps of strengthening exercises 2* maintain good posture with exercises/activity
--- NOTE | 2023-10-18 11:16 | PTOPEVAL1 ---
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 Watson has the diagnosis of cervical radiculopathy, intermittent into L fingers. Pain with gradual increase, without trauma or injury, but has increased her fitness exercises and weight used for UE's. Self assessment Neck Disability Index score of 22% limitation in activity. 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 With the evaluation, she has radicular pain increase with cervical flexion, extension and rotation to L, with decreased cervical rotation to L; muscle spasms over cervical, upper traps and pecs areas with spasms over cervical and thoracic musculature. Skilled PT services are indicated for modalities to decrease pain, therapeutic exercises to improve posture and scapular stabilization with education for HEP. Plan of Care Interventions Electrical Stimulation,Hot Pack/Cold Pack,Manual Therapy,Mechanical Traction,Neuro Re-education, Patient Education,Therapeutic Activities, Therapeutic Exercise,Ultrasound,Other Other Interventions taping, dry needling, IASTM PT Services Indicated Yes Treatment Frequency and 2x/wk for 10 visits Duration These treatments will address the objective and functional deficits as defined above. T
--- NOTE | 2023-11-08 09:22 | PCPTNOTE ---
Pt NS visit today stating she forgot. Pt was reminded of her next appt. on the 11 of November at 9am.
--- NOTE | 2023-11-22 10:00 | OPREHPOC ---
Outpatient Therapy Plan of Care This is a Multidisciplinary Plan of Care that may contain components documented by all disciplines (PT, OT, and ST.) PT Problem 1 PT Problem #1 Knowledge Deficit PT Goal 1 Goal 1* indep with HEP 2* good posture with exercises Progress Met PT Problem 2 PT Problem #2 Pain PT Goal 1 Goal 1* pt report pain at worst of 4/10 2* self assessment Neck Disability Index score of 10% 3* radicular pain into L UE to elbow at worst Target Visit 18 Progress Partially Met Comment Improving but deficits remaining in all listed goals PT Problem 3 PT Problem #3 Impaired Flexibility PT Goal 1 Goal increase cervical ROM to improve work, driving and home task abilities 1* cervical rotation to L 70' NO pain increase with 3 reps: 2* cervical rotation L 3* cervical flexion 4* cervical extension Target Visit 18 Progress Not Met Comment Radicular symptoms still present PT Problem 4 PT Problem #4 Impaired Strength PT Goal 1 Goal increase cervical-thoracic strength to improve posture and stabilization of upper quadrant: 1* pt perform 20 reps of strengthening exercises 2* maintain good posture with exercises/activity Target Visit 10 Progress Met PT Problem 5 PT Problem #5 Impaired Functional Mobil PT Goal 1 Goal Patient will report no radicular symptoms in L hand with cervical rotation and side bending to left Target Visit 18 Comment New goal PT Goal 2 Goal Demonstrate 8# lift overhead with linda arms with no radicular neck pain Target Visit 18 Zaira
--- NOTE | 2023-11-22 10:01 | PTOPPROG ---
Assessment and note entered by Shaun Smith, PT Evaluation Information Assessment Status Progress Diagnosis Cervical radiculopathy Subjective Information Reports that overall she does feel therapy has really helped. She is currently continuing to notice radicular symptoms that seem to be based on activity. She is following up with neurologist for possible conduction study s she is getting sporadic nerve symptoms in left hand. Would like to continue therapy in the meantime. Assessment PT Clinical Summary Patient has seen subjective improvement at this time. We continue to see limitations in left cervical rotation and compression. It is obvious at this point there is a level of stenotic activity affecting functional left cervical mobility. I have recommended a home traction unit to the patient to continue to promote decompression activity for discogenic health. Will continue therapy with emphasis on ergonomics and decompressive therapy. Plan of Care Interventions Electrical Stimulation,Hot Pack/Cold Pack,Manual Therapy,Mechanical Traction,Neuro Re-education, Patient/Caregiver Education,Therapeutic Activities, Therapeutic Exercise,Ultrasound,Other Other Interventions taping, dry needling, IASTM PT Services Indicated Yes Treatment Frequency and 2x/wk for 10 visits Duration These treatments will address the objective and functional deficits as defined above. The patient will be advanced safely and appropriately in order for the patient to progress towards his/her prior level of function. Additional exercises will be introduced and as well as a comprehensive home exercise program upon discharge, if needed, ?to ensure carryover of functional gains achieved in the clinic. This treatment plan has been reviewed and agreement upon by the patient.
--- NOTE | 2023-12-06 14:31 | PCPTNOTE ---
pt did not show for today's treatment session.
--- NOTE | 2023-12-17 09:53 | PCPTNOTE ---
Pt. did not show for therapy appointment this date. Called and left voicemail reminding pt. of her upcoming next appointment. Pt returned call and reported she had a work emergency and so was unable to make her appointment today.
--- NOTE | 2024-01-10 11:45 | PTOPDC ---
Assessment and note entered by Ana Stone, PT Evaluation Information Assessment Status Discharge Diagnosis Cervical radiculopathy Subjective Information Pt reports that the pain and numbness is gone; may occasionally feel stiffness and tightness especially with long distance driving, sleeping in a wrong position but experiences relief of symptoms after performing the stretches and exercises that she has on her HEPs. Reported Pain Level Pain Score 0: Self Report Assessment PT Clinical Summary Pt reports significant improvement and denies any re-occurrence of radicular symptoms since starting therapy. Current Self Assessment of Neck Disability Index score is < 10%, she states able to go back to performing recreational IADLs, and activities at work without pain and discomfort; She has met all established goals and is compliant with HEPs. Discontinued skilled PT at this time. Plan of Care PT Services Indicated No
== END 2024-01-10 13:06 | disposition home or self-care (01) ==
LOC: ANHPT 10:15
PROVIDERS: PCP Family Medicine; Visit Provider Obstetrics & Gynecology
DX: M54.12 Radiculopathy, cervical region (principal)
CPT/HCPCS: 97012; 97014; 97035; 97110; 97140; 97161; 97530; 99199; G0283

== ENCOUNTER 2024-09-18 12:25 | Outpatient (CLI) | payer OTHER, SELFPAY ==
--- OUTSIDE RECORDS SUMMARY | 2024-09-18 12:40 | XMS_ITS ---
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 Name Role Phone Godfrey Canales Primary Care Provider Unavailabl Lisa Holman Unavailable [phone] Danay Rivera Unavailable Unavailable [employer], Provider Unavailable Unavailab le Allergies Allergen (clinical drug ingredient) Drug/Non Drug Allergy documented on EMR Reaction Allergy Type Onset Date Status Penicillin Unknown Drug Allergy Active REASON FOR VISIT Multum To [facility] Conversion Encounter Medications Medication SIG (Take, Route, Frequency, Duration) Notes Start Date End Date Status EpiPen 2-Ted 0.3 MG/0.3ML 0.3 mg intramuscularly once for 1 dose(s) Active Edna Allergy 180 MG 1 tab(s) orally once a day for 90 days 09/14/2017 Active SIT (CLUSTER) VARIABLE PER SCHEDULE SC PER SCHEDULE for TO BE DETERMINED *Please review for potential replacement for e-prescription and drug interaction check* Active ASMANEX TWISTHALER 120 DOSE 220 MCG/INH 1 PUFF(S) INHALED ONCE A DAY (IN THE EVENING) for 30 DAY(S) *Please review for potential replacement for e-prescription and drug interaction check* Active PROAIR HFA CFC FREE 90 MCG/INH 2 PUFF(S) INHALED Q4-6 HOURS, PRN AND PER THE ASTHMA ACTION PLAN for 30 DAY(S) *Please review for potential replacement for e-prescription and drug interaction check* Active Pregabalin 100 MG 1 cap(s) orally 2 times a day Active Ventolin HFA 108 (90 Base) MCG/ACT 2 puff(s) inhaled Q4-6 hours, PRN and per the asthma action plan Active SIT (TRADITIONAL) VARIABLE PER SCHEDULE SC PER SCHEDULE *Please review for potential replacement for e-prescription and drug interaction check* Active Flonase Allergy Relief 50 MCG/ACT 1 spray(s) intranasally once a day for 90 days Active EpiPen 2-Ted 0.3 MG/0.3ML 0.3 mg intramuscularly once for 1 dose(s) Active NASAL WASHES N/A DIRECTED INTRANASALLY NEEDED for 30 *Please review for potential replacement for e-prescription and drug interaction check* Active Fluticasone Propionate 50 MCG/ACT 2 spray(s) intranasally once a day for 30 day(s) Active Montelukast Sodium 10 MG 1 tab(s) orally once a day (in the evening) for 30 day(s) Active Cetirizine HCl 10 MG 1 tab(s) orally once a day for 30 days Active Encounters Encounter Location Date Provider Diagnosis [address] [address] 01/22/2024 Provider [facility]Migration Plan Of Treatment No Information Progress Notes * Hank ANDREAeDOB: 0 (54 yo F)Acc No.[id number]:01/22/2024 Patient: Eran PEREZ Provider: Ryan Coreas :1970 A ge:53 Y S ex:Female Date:01/22/2024 Address:[address] [place], [place] [id number] Pcp:Godfrey Canales Subjective: * Chief Complaints: * [facility] . [facility]. * Medical History: * Medications: T aking Pregabalin 100 MG Capsule 1 cap(s) orally 2 times a day , Taking Ventolin HFA 108 (90 Base) MCG/ACT Aerosol Solution 2 puff(s) inhaled Q4-6 hours, PRN and per the asthma action plan , Taking Flonase Allergy Relief 50 MCG/ACT Suspension 1 spray(s) intranasally once a day , Taking EpiPen 2-Ted 0.3 MG/0.3ML Solution Auto- injector 0.3 mg intramuscularly once , Taking Edna Allergy 180 MG Tablet 1 tab(s) orally once a day , Taking SIT (CLUSTER) VARIABLE SEE RECORD PER SCHEDULE SC PER SCHEDULE , Notes to Pharmacist: *Please review for potential replacement for e-prescription and drug interaction check*, Taking ASMANEX TWISTHALER 120 DOSE 220 MCG/INH AEROSOL POWDER 1 PUFF(S) INHALED ONCE A DAY (IN THE EVENING) , Notes to Pharmacist: *Please review for potential replacement for e-prescription and drug interaction check*, Taking PROAIR HFA CFC FREE 90 MCG/INH AEROSOL 2 PUFF(S) INHALED Q4-6 HOURS, PRN AND PER THE ASTHMA ACTION PLAN , Notes to Pharmacist: *Please review for potential replacement for e-prescription and drug interaction check*, Taking Montelukast Sodium 10 MG Tablet 1 tab(s) orally once a day (in the evening) , Taking Cetirizine HCl 10 MG Tablet 1 tab(s) orally once a day , Taking NASAL WASHES N/A 1 QUART OF STERILIZED TAP WATER OR DISTILLED WATER, 1 TSP NACL, 1 PINCH OF BAKING SODA DIRECTED INTRANASALLY NEEDED , Notes to Pharmacist: *Please review for potential replacement for e-prescription and drug interaction check*, Taking Fluticasone Propionate 50 MCG/ACT Suspension 2 spray(s) intranasally once a day , Taking SIT (TRADITIONAL) VARIABLE SEE RECORD PER SCHEDULE SC PER SCHEDULE , Notes to Pharmacist: *Please review for potential replacement for e-prescription and drug interaction check*, Taking EpiPen 2-Ted 0.3 MG/0.3ML Solution Auto-injector 0.3 mg intramuscularly once * Allergies: P enicillin: Unknown. Objective: * Vitals: Assessment: Plan: * Treatment: * Billing Information: * Visit Code: * Procedure Codes: * Electronic signature of Mckenna JOHNSON-Migration on 09/18/2024 at 12:40 PM BURRER MACHINE Sign off status: Pending * Provider: Ryan esteban Migration Date: 01/22/2024 Generated for Laura Cr/Mario on: 09/18/2024 12:40 PM BURRER MACHINE
--- OUTSIDE RECORDS SUMMARY | 2024-09-18 12:40 | XMS_ITS | Clinical Summary ---
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 Name Role Phone Unavailable Primary Care Provider Unavailabl e Immunizations Immunization Administration Dates Next Due Covid-19, Mrna, Lnp-s, Pf, 3 0 Mcg/0.3 Ml Dose (Pfizer) 05/16/2021,08/18/2020,07/28/2020 Social History Tobacco Use Types Packs/Day Years Used Date Smoking Tobacco: Never Assessed Comments Unknown Sex and Gender Information Value Date Recorded Sex Assigned at Not on file Legal Sex Female 11:19 AM DEWER Gender Identity Not on file Sexual Orientation Not on file Plan of Treatment Health Maintenance Due Date Last Done Comments Hepatitis C Virus (HCV) Screening 1970 TdaP Immunization 1970 Hepatitis B Immunization (1 of 3 - 19+ 3-dose series) 1989 Pap Smear 1991 Cervical Cancer Screening (CCS) 2000 HPV/Cotest 2000 Colonoscopy 2015 Colorectal Cancer Screening 2015 Cologuard 2020 Immunochemical Fecal Occult Blood 2020 Mammogram 2020 Pneumococcal Immunization (5 0+ years) (1 of 1 - PCV) 2020 Zoster Immunization (1 of 2) 2020 Influenza Immunization (#1) 2024 SARS-COV-2 Immunization ( season) 2024 05/16/2021, 08/18/2020, 07/28/2020 Respiratory Syncytial Virus (RSV) Immunization (Adult) (1 - 1-dose 75+ series) 2045 Meningococcal Immunization (ACWY) Aged Out No longer eligible b ased on patient's age to complete this topic Pneumococcal Immunization Combined Aged Out No longer eligible b ased on patient's age to complete this topic Rotavirus Immunization Aged Out No lo nger eligible based on patient's age to complete this topic
--- OUTSIDE RECORDS SUMMARY | 2024-09-18 12:41 | XMS_ITS | Clinical Summary ---
Author Organization [facility] Address [address] [place] [address] Care Team Providers Care Naphthol Soaping Machine Operator Name Role Phone Godfrey Canales MD Primary Care Provider [phone] Allergies Active Allergy Reactions Criticality Noted Date Comments Penicillins Unknown 10/07/2012 as a child Penicillins Other (See comments) Reaction: Unknown, Medications hydroCHLOROthia zide (HYDRODIURIL) 25 mg tablet take 1 tablet by oral route every day 0 0 7 Active albuterol HFA (PROVENTIL HFA,VENTOLIN HFA) 90 mcg/actuation inhaler Inhale 2 puffs every 6 hours 8 Active tranexamic acid (Lysteda) 650 mg tablet Take 2 tablets (1,300 mg total) by mouth 3 (three) times a day 90 tablet 2 2 Active Additional Information Patient not taking.Reported on 05/26/2024 FreeStyle Miryam 2 Sensor kit CHANGE EVERY 14 DAYS. 3 Active famotidine (PEPCID) 20 mg tablet Take 1 tablet (20 mg total) by mouth nightly as needed for heartburn Active Active Problems Problem Noted Date Diagnosed Date Essential hypertension 04/26/2023 Tinnitus 10/21/2018 Benign paroxysmal positional vertigo of right ea r 10/21/2018 Palpitations 07/10/2014 Overview (11/13/2016): Palpitations Encounters Date Type Department Care Team Description 07/31/2024 10:00 AM KNIFE SHARPENER - 07/31/2024 11:59 PM KNIFE SHARPENER Hospital Encounter [facility] [address] [place] [address] Screening mammogram, encounter for Discharge Disposition: Discharge to home or self care from Last 3 Months Immunizations Name Administration Dates Next Due Influenza, Quadrivalent, Spl it, Preservative Free, Intramuscular 05/06/2018 Influenza, Trivalent, IM (MDV) 05/09/2015,2013 Influenza, Unspecified 05/09/2021,2018,05/09/2017,08/09 Pfizer Sars-Cov-2 Bivalent V accination (12+ YRS) 05/09/2022 Pneumococcal Polysaccharide PPV23 06/13/2014 Tdap 06/13/2014 ZOSTER Recombinant 09/05/2021,06/21/2020 Surgical History Surgery Date Site/Laterality Comments TUBAL LIGATION LASIK SECTION x3 Medical History Medical History Date Comments Hypertension 2013 Hypertension Airway hyperreactivity 1993 Asthma Asthma Seasonal allergies Acid reflux reflux Acid Reflux Menorrhagia with regular cycle Family History Medical History Relation Name Comments COPD Father COPD; Hypertension Father Diabetes type II Mother Diabetes me llitus type 2; Hypertension Mother Hypertension; Colon cancer Paternal Grandmother possib le Breast cancer Neg Hx Ovarian cancer Neg Hx Uterine cancer Neg Hx Relation Name Status Comments Father Mother Paternal Grandmother Social History Tobacco Use Types Packs/Day Years Used Date Smoking Tobacco: Never Smokeless Tobacco: Never Tobacco Cessation:Counseling Given: Not Answered Alcohol Use Standard Drinks/Week Comments Yes 0 (1 standard drink = 0.6 oz pur e alcohol) Comments No Sex and Gender Information Value Date Recorded Sex Assigned at Not on file Legal Sex Female 1:13 AM KNIFE SHARPENER Gender Identity Not on file Sexual Orientation Not on file Obstetrics History Para Term AB IAB SAB Ectopic Multiple Livin g Live Births 3 3 3 3 Date Outcome GA Total Labor Labor/2nd/3rd Weight Sex Type Anes PTL Melinda A1 A5 Name Clin Term Term Term Last Filed Vital Signs Vital Sign Reading Time Taken Comments Blood Pressure 145/87 05/26/2024 9:35 AM CDT Pulse 77 04/26/2023 1:00 PM CDT Temperature 36.7 C (98.1 F) 10/04/2018 3:23 AM KNIFE SHARPENER Respiratory Rate 17 10/04/2018 6:30 PM KNIFE SHARPENER Oxygen Saturation 95% 04/26/2023 1:00 PM CDT Inhaled Oxygen Concentration - - Weight 93.9 kg (207 lb) 05/26/2024 9:35 AM CDT Height 162.6 cm (5' 4 ) 04/26/2023 1:00 PM CDT Body Mass Index 35.53 04/26/2023 1:00 PM CDT Plan of Treatment Health Maintenance Due Date Last Done Comments Depression Screening 1970 Hepatitis C Screening 1970 Hepatitis B Screening 1988 Pneumococcal vaccine <65 (2 of 2 - PCV) 06/13/2015 06/13/2014 Covid-19 Vaccine (2023-2 5 season) 2024 05/09/2022, 05/16/2021, 08/18/2020, Additional history exists Influenza Vaccine (#1) 2024 , 05/09/2019, 05/06/2018, Additional history exists DTaP/Tdap/Td Vaccine (2 - Td or Tdap) 06/13/2024 06/13/2014 Regular Well Visit/Exam 18-64 05/26/2025, 12/11/2022, 08/29/2021, Additional history exists Breast Cancer Screening-Mammogram 07/31/2025 07/31/2024, 07/30/2023, 06/05/2022, Additional history exists Cervical Cancer Screening 05/26/20272023, 05/26/2024, 12/11/2022, Additional history exists Colon Cancer Screening-Colonoscopy 03/13/20312020 Zoster Vaccine Completed 09/05/2021, 06/21/2020 Procedures Procedure Name Priority Date/Time Associated Diagnosis Comments SCREENING MAMMOGRAM BILATERAL W SÚAL Schedule Routine, Read Routine (OP Routine) 07/31/2024 10:22 AM KNIFE SHARPENER Screening mammogram, encounter for HIGH RISK HPV DNA DETECTION WITH GENOTYPING Routine 05/26/2024 12:00 PM CDT Well woman exam with routine gynecological exam Screening for human papillomavirus Screening for cervical cancer from Last 3 Months or Most Recently Relevant to Health Maintenance Results * Screening Mammogram Bilateral W Saúl (07/31/2024 10:22 AM KNIFE SHARPENER) Anatomical Region Laterality Modality Breast Bilateral Mammography Narrative 07/31/2024 2:56 PM KNIFE SHARPENER Mammogram Technique: Bilateral Digital Breast Tomosynthesis, Bilateral C-view 2D Screening mammogram. Views obtained: bilateral craniocaudal and bilateral mediolateral oblique. Computer Aided Detection was performed. Mammogram Findings: The present examination has been compared to prior imaging studies performed at [facility] on 05/02/2021, 06/05/2022 and 07/30/2023. There are scattered areas of fibroglandular density. There is no suspicious abnormality in either breast. Impression: There is no mammographic evidence of malignancy. Annual screening mammography is recommended. OVERALL FINAL ASSESSMENT: BI-RADS CATEGORY 1: Negative. Procedure Note Monica Houston MD - 07/31/2024 Mammogram Technique: Bilateral Digital Breast Tomosynthesis, Bilateral C-view 2D Screening mammogram. Views obtained: bilateral craniocaudal and bilateral mediolateral oblique. Computer Aided Detection was performed. Mammogram Findings: The present examination has been compared to prior imaging studies performed at [facility] on 05/02/2021, 06/05/2022 and 07/30/2023. There are scattered areas of fibroglandular density. There is no suspicious abnormality in either breast. Impression: There is no mammographic evidence of malignancy. Annual screening mammography is recommended. OVERALL FINAL ASSESSMENT: BI-RADS CATEGORY 1: Negative. us Self Screening Mammogram IMG MAMMO PROCEDURES Fi nal Result * High Risk HPV DNA Detection with Genotyping (Molecular component) (05/26/2024 12:00 PM CDT) HPV HR 16 Not Detected Not Detected HPV HR 18 Not Detected Not Detected [facility] HPV HR Non 16/18 Not Detected Not Detected [facility] Comment: Interpretive Data Nucleic acid amplification for detection of high-risk Human Papilloma virus (HPV) is performed by the [employer] 4800 HPV test, which specifically detects high-risk HPV-16, 18, 31, 33, 35, 39, 45, 51, 52, 56, 58, 59, 66, and 68 genotypes. This assay has been approved by the [place] Food and Drug Administration for detection of HPV in cervical specimens collected by a physician using an endocervical brush/spatula or cervical broom and placed in the ThinPrep Pap Test PreservCyt collection containers. The performance characteristics of this test have been verified by the [facility]. Correlate with separately reported cytology results, as applicable. Interpretive data last revised 23 Endocervical 05/26/2024 12:0 0 PM CDT 05/26/2024 5:24 PM CDT Narrative [facility] - 06/01/2024 12:04 PM CDT Clinical history and diagnosis->well woman Number of vials->1 Testing type->Screening Last menstrual period (date if known)->12/08/23 Menstrual status->Perimenopausal us Yolanda Briceño MD LAB BODY FLUIDS AND ST OOLS ORDERABLES Final Result [facility] [address] [place] [address] from Last 3 Months or Most Recently Relevant to Health Maintenance Insurance [facility] Care Teams Naphthol Soaping Machine Operator Relationship Specialty Start Date End Date Godfrey Canales MD PCP - General Family Practice 06/14/23
--- OUTSIDE RECORDS SUMMARY | 2024-09-18 12:41 | XMS_ITS | Encounter Summary ---
Author Organization [facility] Address [address] [place] [address] Care Team Providers Care Clerk Manager Name Role Phone Talia Álvarez MD Primary Care Provider [phone] Talia Álvarez MD Primary Care Provider [phone] Talia Álvarez MD Unavailable [phone] Yolanda Briceño MD Unavailable [phone] Lisa Robles MD Unavailable [phone] Pcp, Storm Martinez [facility] Primary Care Provider Unavailable Godfrey Canales MD Primary Care Provider [phone] Encounter Details Date Type Department Care Team (Late st Contact Info) Description 09/28/2018 [facility] Outpatient Visit [facility] - Internal Medicine [address], [address] [place] [address] Talia Álvarez [place] [address] [address] [place] [address] Social History Tobacco Use Types Packs/Day Years Used Date Smoking Tobacco: Never Smokeless Tobacco: Never Alcohol Use Standard Drinks/Week Comments Yes 0 (1 standard drink = 0.6 oz pur e alcohol) occasionally Sex and Gender Information Value Date Recorded Sex Assigned at Not on file Gender Identity Not on file Sexual Orientation Not on file documented as of this encounter Plan of Treatment Not on file documented as of this encounter Visit Diagnoses Not on filedocumented in this encounter Care Teams Clerk Manager Relationship Specialty Start Date End Date Talia Álvarez MD PCP - General Internal Medicine 09/16/12 02/13/19 Talia Álvarez MD PCP - General Internal Medicine 02/14/19 02/17/23 PcpStorm - PCP - General 02/18/23 02/18/23 Godfrey Canales MD [address] [place] [phone] PCP - General Family Medicine 05/24/23 Talia Álvarez MD Internal Medicine 02/14/19 Yolanda Briceño MD Locksmith Helper Obstetrics and Gynecology 08/13/17 Lisa Robles MD [address] [place] [id number] Physician Allergy and Immunology 08/13/17 documented as of this encounter
--- OUTSIDE RECORDS SUMMARY | 2024-09-18 12:41 | XMS_ITS | Referral Summary ---
Author Organization [facility] Address [address] [place] [address] Care Team Providers Care Retail Interior Designer Name Role Phone Talia Álvarez MD Unavailable [phone] Yolanda Briceño MD Unavailable [phone] Godfrey Canales MD Primary Care Provider [phone] Source Comments [facility],non-owned Affiliates and Associated Physician Practices is amultiple site organization consisting of ambulatory clinics and hospital sitesin [place], [place], [place] and [place]. This disclosure is being madepursuant to the Care Everywhere program and may not contain all information available regarding this patient. Last updated 18.[facility] Allergies Active Allergy Reactions Criticality Noted Date Comments Penicillins Unknown 10/07/2012 as a child Medications * Be aware that medications may not be up to date on this document. Alwaysverify current medications with the patient. Medication Sig Dispensed Refills Start Date End Date Status EPIPEN 2-FREDERICK 0.3 MG/0.3ML auto-injector 09/19/2014 Active Cetirizine HCl (ZYRTEC ALLERGY PO) Activ e polyethylene glycol 3350 (MIRALAX) packetIndications:G astroesophageal reflux disease, esophagitis presence not specified Take 255 g by mouth as directed As directed per written colonoscopy instructions 255 g 06/07/2018 Active tranexamic acid (LYSTEDA) 650 MG tablet Take 1 (one) tablet by mouth 06/21/2020 Active albuterol HFA (Proventil; Ventolin; Proair) 108 (90 Base) MCG/ACT inhalerIndications: Mild intermittent asthma without complication (HCC) Inhale 2 (two) puffs by mouth every 6 hours as needed for Shortness of Breath 54 g 08/06/2022 Active hydroCHLOROthiazide (Hydrodiuril) 25 MG tabletIndications:E ssential hypertension with goal blood pressure less than 130/85 TAKE 1 TABLET BY MOUTH ONCE DAILY 90 tablet 2 01/08/2023 Active Active Problems Problem Noted Date Diagnosed Date Encounter for routine gynecological examination 10/06/2019 Obesity 10/06/2019 Menorrhagia with regular cycle 01/04/2019 Benign paroxysmal positional vertigo of right ea r 10/21/2018 Tinnitus 10/21/2018 Allergic rhinitis 09/28/2018 Vertigo 09/28/2018 Mild intermittent asthma without complication Essential hypertension with goal blood pressure less than 130/85 12/03/2015 Gastroesophageal reflux disease without esophagi tis 12/03/2015 Prediabetes 12/03/2015 Anemia 12/03/2015 Palpitations 07/10/2014 Overview (10/06/2019): Overview: Palpitations Hyperplastic colon polyp 10/24/2012 Immunizations Name Administration Dates Next Due INFLUENZA VACCINE, TRIV. (AF LURIA, FLUZONE TRIVALENT; 6MO+) (IIV3) 05/09/2015,05/30/2014 COVID ProspX BIVALENT 12Y+ 30mcg/0.3ML 05/09/2022 Covid Coomuna primary monoval ent 12+ yr 0.3mL Purple cap 08/18/2020,07/28/2020 INFLUENZA VACCINE 05/09/2021, 9,05/09/2017,2016 INFLUENZA VACCINE, QUADR. (F LUZONE; FLULAVAL; FLUARIX; AFLURIA QUADRIVALENT; 6MO+), 0.5 ML (IIV4) 05/06/2018 PNEUMOCOCCAL PPSV23 06/13/2014 TDAP (7yrs+) 06/13/2014 Zoster Hzv Vacc Recombinant Inj Im 09/05/2021, Social History Tobacco Use Types Packs/Day Years Used Date Smoking Tobacco: Never Smokeless Tobacco: Never Alcohol Use Standard Drinks/Week Comments Yes 0 (1 standard drink = 0.6 oz pur e alcohol) occasionally PHQ-2 Answer Date Recorded PHQ2 TOTAL SCORE 0 06/08/2022 Sex and Gender Information Value Date Recorded Sex Assigned at Not on file Gender Identity Not on file Sexual Orientation Not on file Last Filed Vital Signs Vital Sign Reading Time Taken Comments Blood Pressure 116/86 05/24/2023 2:55 PM CDT Pulse 85 05/24/2023 2:55 PM CDT Temperature 36.7 C (98 F) 05/24/2023 1:49 PM CDT Respiratory Rate 13 05/24/2023 2:55 PM CDT Oxygen Saturation 99% 05/24/2023 2:55 PM CDT Inhaled Oxygen Concentration - - Weight 90.3 kg (199 lb) 05/24/2023 1:43 PM CDT Height 162.6 cm (5' 4 ) 05/24/2023 1:43 PM CDT Body Mass Index 34.16 05/24/2023 1:43 PM CDT Plan of Treatment Not on file Procedures Procedure Name Priority Date/Time Associated Diagnosis Comments MAMMOGRAM 06/05/2022 ENDOSCOPY, COLON, SCREENING Routine 03/13/2021 1:50 PM CDT Hx of colonic polyps COMPREHENSIVE METABOLIC PANEL Routine 10/16/2017 Annual physical exam Essential hypertension with goal blood pressure less than 130/85 Gastroesophageal reflux disease without esophagitis Prediabetes LIPID PROFILE W TCHOL/HDL Routine 10/16/2017 Annual physical exam Class 1 obesity due to excess calories with serious comorbidity and body mass index (BMI) of 33.0 to 33.9 in adult HPV HIGH RISK W REFLEX 16,18 01/03/2015 3:58 PM CDT from Last 3 Months or Most Recently Relevant to Health Maintenance Results * MAMMOGRAM (06/05/2022) Anatomical Region Laterality Modality Other 06/05/2022 Narrative 06/05/2022 Ordered by an unspecified provider. Scanned Document SCANNING ONLY * ENDOSCOPY, COLON, SCREENING (03/13/2021 1:50 PM CDT) Report Endoscopy POC _ Patient Name: Eran Clark Procedure Date: 03/13/2021 1:50 PM Date of : 1970 Admit Type: Outpatient Age: 50 Gender: Female Ethnicity: Not or Race: Black or Attending MD: Porter Harvey MD _ Procedure: Colonoscopy Indications: Personal history of colonic polyps Providers: Porter Harvey MD (Doctor), Nabila Donaldson RN, Tati Canales, Tent Finisher Referring MD: Talia Álvarez MD (Referring MD) Medicines: Monitored Anesthesia Care Complications: No immediate complications. _ Procedure: Pre-Anesthesia Assessment: - Prior to the procedure, a History and Physical was performed, and patient medications and allergies were reviewed. The patient's tolerance of previous anesthesia was also reviewed. The risks and benefits of the procedure and the sedation options and risks were discussed with the patient. All questions were answered, and informed consent was obtained. Prior Anticoagulants: The patient has taken no previous anticoagulant or antiplatelet agents. ASA Grade Assessment: II - A patient with mild systemic disease. After reviewing the risks and benefits, the patient was deemed in satisfactory condition to undergo the procedure. After I obtained informed consent, the scope was passed under direct vision. Throughout the procedure, the patient's blood pressure, pulse, and oxygen saturations were monitored continuously. The Colonoscope was introduced through the anus and advanced to the cecum, identified by appendiceal orifice and ileocecal valve. The colonoscopy was performed without difficulty. The patient tolerated the procedure well. The quality of the bowel preparation was fair. The ileocecal valve, appendiceal orifice, and rectum were photographed. Impression: - Preparation of the colon was fair. - Diverticulosis. - One 3 mm polyp in the cecum, removed with a cold biopsy forceps. Resected and retrieved. - One 3 mm polyp in the transverse colon, removed with a cold biopsy forceps. Resected and retrieved. - Eight 2 to 3 mm polyps in the sigmoid colon, removed with a cold biopsy forceps. Resected and retrieved. - Diverticulosis. Findings: Diverticula were found in the colon. A 3 mm polyp was found in the cecum. The polyp was sessile. The polyp was removed with a cold biopsy forceps. Resection and retrieval were complete. A 3 mm polyp was found in the transverse colon. The polyp was sessile. The polyp was removed with a cold biopsy forceps. Resection and retrieval were complete. Estimated blood loss: none. Eight sessile polyps were found in the sigmoid colon. The polyps were 2 to 3 mm in size. These polyps were removed with a cold biopsy forceps. Resection and retrieval were complete. Diverticula were found in the colon. _ Recommendation: - Written discharge instructions were provided to the patient. - The signs and symptoms of potential delayed complications were discussed with the patient. - Patient has a contact number available for emergencies. - Return to normal activities tomorrow. - Resume previous diet. - Continue present medications. - Await pathology results. - Repeat colonoscopy in 3 - 5 years for surveillance based on pathology results. Procedure Code(s): --- Professional --- 52995, Colonoscopy, flexible; with biopsy, single or multiple --- Technical --- 95474, Colonoscopy, flexible; with biopsy, single or multiple Diagnosis Code(s): --- Professional --- K63.5, Polyp of colon Z86.010, Personal history of colonic polyps K57.30, Diverticulosis of large intestine without perforation or abscess without bleeding --- Technical --- K63.5, Polyp of colon Z86.010, Personal history of colonic polyps K57.30, Diverticulosis of large intestine without perforation or abscess without bleeding CPT copyright 2019 [employer]. All rights reserved. The codes documented in this report are preliminary and upon knot borer review may be revised to meet current compliance requirements. Porter Harvey MD 03/13/2021 2:52:25 PM This report has been signed electronically. Number of Addenda: 0 Note Initiated On: 03/13/2021 1:50 PM [facility] ENDOSCOPY 03/13/2021 1:50 PM CDT Porter Harvey MD GI PROCEDURE ORDERAB LES Performing Organization Address [facility] Co de Phone Number [facility] ENDOSCOPY * LIPID PROFILE W TCHOL/HDL (10/16/2017) Blood BLOOD SPECIMEN / Unknown 10/16/2017 Talia Álvarez MD LAB - CHEMISTRY NOLVIA MARTINEZ Performing Organization Address [facility] Co de Phone Number OTHER LAB * COMPREHENSIVE METABOLIC PANEL (10/16/2017) Blood BLOOD SPECIMEN / Unknown 10/16/2017 Talia Álvarez MD LAB - CHEMISTRY NOLVIA MARTINEZ Performing Organization Address [facility] Co de Phone Number OTHER LAB * HPV HIGH RISK W REFLEX 16/18 (PO REF LAB) (01/03/2015 3:58 PM CDT) Human papillomavirus DNA High Risk NOT DETECTED [facility] Comment: Tested for High Risk types 16, 18, 31, 33, 35, 39, 45, 51, 52, 56, 58, 59, 68. REFERENCE RANGE: HPV DNA HIGH RISK: NOT DETECTED The analytical performance characteristics of this assay, when used to test SurePath(TM) have been determined by [employer]. Test Performed at: [email or web address] [id number] [place] [address] REYMUNDO SAPP MD 01/03/2015 3:58 PM CDT 01/04/2015 8:00 AM CDT Rosaline Jeter MD LAB - MICROBIOLOGY O RDERABLES [facility] [address] [place] [address] from Last 3 Months or Most Recently Relevant to Health Maintenance Care Teams Retail Interior Designer Relationship Specialty Start Date End Date Godfrey Canales MD [address] [place] [phone] PCP - General Family Medicine 05/24/23 Talia Álvarez MD Internal Medicine 02/14/19 Yolanda Briceño MD Transverse Abdominal Muscle Surgeon Obstetrics and Gynecology 08/13/17
--- OUTSIDE RECORDS SUMMARY | 2024-09-18 12:41 | XMS_ITS | Patient Health Summary ---
Author Organization [facility] Address [address] [place] [address] Care Team Providers Care Grapple Crew Leader Name Role Phone Talia Álvarez MD Unavailable [phone] Yolanda Briceño MD Unavailable [phone] Godfrey Canales MD Primary Care Provider [phone] Note from [facility],non-owned Affiliates and Associated Physician Practices is amultiple site organization consisting of ambulatory clinics and hospital sitesin [place], [place], [place] and [place]. This disclosure is being madepursuant to the Care Everywhere program and may not contain all information available regarding this patient. Last updated 18.[facility] Allergies * Penicillins(Unknown) Medications * Be aware that medications may not be up to date on this document. Alwaysverify current medications with the patient. * EPIPEN 2-FREDERICK 0.3 MG/0.3ML auto-injector(Started 09/19/2014) * Cetirizine HCl (ZYRTEC ALLERGY PO) * polyethylene glycol 3350 (MIRALAX) packet(Started 06/07/2018) Take 255 g by mouth as directed As directed per written colonoscopy instructions * tranexamic acid (LYSTEDA) 650 MG tablet(Started 06/21/2020) Take 1 (one) tablet by mouth * albuterol HFA (Proventil; Ventolin; Proair) 108 (90 Base) MCG/ACT inhaler (Started 08/06/2022) Inhale 2 (two) puffs by mouth every 6 hours as needed for Shortness of Breath * hydroCHLOROthiazide (Hydrodiuril) 25 MG tablet(Started 01/08/2023) TAKE 1 TABLET BY MOUTH ONCE DAILY 2 refills by 01/08/2024 Active Problems Problem Noted Date Diagnosed Date [...] 12/03/2015 Prediabetes 12/03/2015 Anemia 12/03/2015 Palpitations 07/10/2014 Hyperplastic colon polyp 10/24/2012 Immunizations * INFLUENZA VACCINE, TRIV. (AFLURIA, FLUZONE TRIVALENT; 6MO+) (IIV3)(Given 05/09/2015, 05/30/2014) * COVID [employer] BIVALENT 12Y+ 30mcg/0.3ML(Given 05/09/2022) * Covid [employer] primary monovalent 12+ yr 0.3mL Purple cap(Given 08/18/2020, 07/28/2020) * INFLUENZA VACCINE(Given 05/09/2021, 05/09/2019, 05/09/2017, 08/09/2016) * INFLUENZA VACCINE, QUADR. (FLUZONE; FLULAVAL; FLUARIX; AFLURIA QUADRIVALENT; 6MO+), 0.5 ML (IIV4)(Given 05/06/2018) * PNEUMOCOCCAL PPSV23(Given 06/13/2014) * TDAP (7yrs+)(Given 06/13/2014) * Zoster Hzv Vacc Recombinant Inj Im(Given 09/05/2021, 06/21/2020) Social History Tobacco Use Types Packs/Day Years [...] Mass Index 34.16 05/24/2023 1:43 PM CDT Procedures * HCG URINE QUAL POCT NOTIFICATION(Performed 05/24/2023) Performed for Preop examination * PATHOLOGY TISSUE EXAM (STL)(Performed 05/24/2023) Performed for Gastroesophageal reflux disease without esophagitis * HELICOBACTER PYLORI UREASE (STL)(Performed 05/24/2023) Performed for Gastroesophageal reflux disease without esophagitis * EGD(Performed 05/24/2023) Performed for Gastroesophageal reflux disease without esophagitis * CA EGD FLEX TRANSORAL W BX SNGL OR MULT(Performed 05/24/2023) Performed for Gastroesophageal reflux disease without esophagitis * CA ED EGD FLEX TRANSORAL DX(Performed 05/24/2023) Performed for Gastroesophageal reflux disease without esophagitis * HCG URINE QUALITATIVE - POCT (IP) INTERFACED(Performed 05/24/2023) * MAMMOGRAM(Performed 06/05/2022) * MAMMOGRAM(Performed 05/02/2021) * HCG URINE QUAL POCT NOTIFICATION(Performed 03/13/2021) Performed for Preop examination * PATHOLOGY TISSUE EXAM (STL)(Performed 03/13/2021) Performed for History of colon polyps * HCG URINE QUALITATIVE - POCT (IP) INTERFACED(Performed 03/13/2021) * ENDOSCOPY, COLON, SCREENING(Performed 03/13/2021) Performed for Hx of colonic polyps * CA COLONOSCOPY,BIOPSY(Performed 03/13/2021) Performed for History of colon polyps * COLONOSCOPY SCREEN(Performed 03/13/2021) Performed for History of colon polyps * EKG 12-LEAD(Performed 06/21/2020) Performed for Annual physical exam, Mild intermittent asthma without complication (HCC) * MAMMOGRAPHY ORDER(Performed 04/26/2020) * LAB RESULTS ORDER(Performed 04/12/2020) * LAB RESULTS ORDER(Performed 02/04/2019) * LAB RESULTS ORDER(Performed 01/05/2019) * LAB RESULTS ORDER(Performed 01/05/2019) * EKG 12-LEAD(Performed 01/04/2019) Performed for Annual physical exam, Essential hypertension with goal blood pressure less than 130/85 * PFT-SPIROMETRY ONLY(Performed 01/04/2019) Performed for Annual physical exam, Mild intermittent asthma without complication (HCC) * MAMMOGRAPHY ORDER(Performed 12/16/2018) * PATHOLOGY TISSUE EXAM (STL)(Performed 10/27/2018) Performed for Gastroesophageal reflux disease, esophagitis presence not specified, History of colonpolyps * HELICOBACTER PYLORI UREASE (STL)(Performed 10/27/2018) Performed for Gastroesophageal reflux disease, esophagitis presence not specified, History of colonpolyps * COLONOSCOPY BIOPSY (ANY METHOD)(Performed 10/27/2018) Performed for Gastroesophageal reflux disease, esophagitis presence not specified, History of colonpolyps * COLONOSCOPY REMOVAL OR ABLATION TUMOR/POLYP/LESION (ANY METHOD)(Performed 10/27/2018) Performed for Gastroesophageal reflux disease, esophagitis presence not specified, History of colonpolyps * ESOPHAGOGASTRODUODENOSCOPY (EGD) BIOPSY(Performed 10/27/2018) Performed for Gastroesophageal reflux disease, esophagitis presence not specified, History of colonpolyps * COLONOSCOPY SCREEN(Performed 10/27/2018) Performed for Gastroesophageal reflux disease, esophagitis presence not specified, History of colonpolyps * ESOPHAGOGASTRODUODENOSCOPY (EGD) DIAGNOSTIC(Performed 10/27/2018) Performed for Gastroesophageal reflux disease, esophagitis presence not specified, History of colonpolyps * ENDOSCOPY, COLON, DIAGNOSTIC(Performed 10/27/2018) * EGD(Performed 10/27/2018) * HCG URINE QUALITATIVE - POCT (IP) INTERFACED(Performed 10/27/2018) * HCG URINE QUAL POCT NOTIFICATION(Performed 10/27/2018) Performed for Preop examination * MAMMOGRAPHY ORDER(Performed 12/10/2017) * LAB RESULTS ORDER(Performed 10/16/2017) * IRON + TIBC PANEL(Performed 10/16/2017) Performed for Annual physical exam, Anemia, unspecified type * TSH(Performed 10/16/2017) Performed for Annual physical exam, Palpitations * HEMOGLOBIN A1C(Performed 10/16/2017) Performed for Annual physical exam, Prediabetes, Class 1 obesity due to excess calories with serious comorbidity and body mass index (BMI) of 33.0 to 33.9 in adult * MICROALB/CREAT RATIO URINE RANDOM PANEL(Performed 10/16/2017) Performed for Annual physical exam, Essential hypertension with goal blood pressure less than 130/85, Prediabetes * LIPID PROFILE W TCHOL/HDL(Performed 10/16/2017) Performed for Annual physical exam, Class 1 obesity due to excess calories with serious comorbidityand body mass index (BMI) of 33.0 to 33.9 in adult * COMPREHENSIVE METABOLIC PANEL(Performed 10/16/2017) Performed for Annual physical exam, Essential hypertension with goal blood pressure less than 130/85, Gastroesophageal reflux disease without esophagitis, Prediabetes * EKG 12-LEAD(Performed 08/13/2017) Performed for Annual physical exam, Essential hypertension with goal blood pressure less than 130/85, Palpitations * PFT-LAB(Performed 08/13/2017) Performed for Mild intermittent asthma without complication (HCC) * MAMMOGRAPHY ORDER(Performed 09/11/2016) * MAMMOGRAPHY ORDER(Performed 09/11/2016) * EKG 12-LEAD(Performed 12/03/2015) Performed for Essential hypertension with goal blood pressure less than 130/85 * LDL CHOLESTEROL (EXTERNAL RESULT ENTRY)(Performed 12/02/2015) * BILIRUBIN TOTAL BLOOD (EXTERNAL RESULT ENTRY)(Performed 12/02/2015) * HEMOGLOBIN A1C (EXTERNAL RESULT ENTRY)(Performed 12/02/2015) * CREATININE BLOOD (EXTERNAL RESULT ENTRY)(Performed 12/02/2015) * US ABDOMEN LIMITED(Performed 06/07/2015) * MAMMOGRAPHY ORDER(Performed 05/10/2015) * MAMMO BILAT SCREENING(Performed 05/10/2015) Performed for Encounter for routine gynecological examination * PAP IG LB+HPV HR RFLX 16,18(Performed 01/03/2015) Performed for Routine gynecological examination * HPV HIGH RISK W REFLEX 16,18(Performed 01/03/2015) * EKG 12-LEAD(Performed 06/13/2014) Performed for Essential Hypertension, Benign * CARDIAC EKG ORDER(Performed 06/13/2014) * LAB RESULTS ORDER(Performed 05/31/2014) * MAMMOGRAPHY ORDER(Performed 12/15/2013) * LAB RESULTS ORDER(Performed 11/01/2013) * PAP IG INV HPV RFLX MASHA(Performed 07/20/2013) * COLONOSCOPY BIOPSY (ANY METHOD)(Performed 10/07/2012) Performed for Unspecified constipation, Anemia, unspecified, Abdominal pain, generalized * ESOPHAGOGASTRODUODENOSCOPY (EGD) BIOPSY(Performed 10/07/2012) Performed for Unspecified constipation, Anemia, unspecified, Abdominal pain, generalized * COLONOSCOPY SCREEN(Performed 10/07/2012) Performed for Unspecified constipation, Anemia, unspecified, Abdominal pain, generalized * ESOPHAGOGASTRODUODENOSCOPY (EGD) DIAGNOSTIC(Performed 10/07/2012) Performed for Unspecified constipation, Anemia, unspecified, Abdominal pain, generalized * PATHOLOGY TISSUE EXAM (STL)(Performed 10/07/2012) Performed for Abdominal pain, generalized * ENDOSCOPY, COLON, SCREENING(Performed 10/07/2012) * EGD(Performed 10/07/2012) * HELICOBACTER PYLORI UREASE(Performed 10/07/2012) Performed for Abdominal pain, generalized * HCG URINE QUALITATIVE - POINT OF CARE(Performed 10/07/2012) * ENDOSCOPY, COLON, SCREENING(Performed 10/07/2012) * CARDIAC EKG ORDER(Performed 09/13/2012) * IMAGING/RADIOLOGY/XRAY RESULTS ORDER(Performed 09/13/2012) * IMAGING/RADIOLOGY/XRAY RESULTS ORDER(Performed 09/13/2012) * PULMONARY/RESPIRATORY REPORT ORDER(Performed 11/27/2011) Results * HCG URINE QUAL POCT NOTIFICATION (05/24/2023 3:00 PM CDT) Only the most recent of3 resultswithin the time period is included. Comment Notification Label Only - See Separate Report 05/24/2023 3:00 PM CDT [facility] Urine URINE / Unknown 1:34 PM CDT Porter Harvey MD LAB - URINALYSIS ORD ERABLES [facility] [address] [place] [address] * PATHOLOGY TISSUE EXAM (STL) (05/24/2023 2:41 PM CDT) Only the most recent of4 resultswithin the time period is included. Case Report Surgical Pathology Report Case: [id number] Authorizing Provider: Porter Harvey MD Collected: 05/24/2023 02:41 PM Ordering Location: [facility] Received: 05/25/2023 07:49 AM Pathologist: Ginger Gonzalez MD Specimens: A) - Small Bowel Biopsy B) - Esophageal Biopsy 05/26/2023 10:[address] [facility] Final Diagnosis Small intestine, biopsy (A) - Duodenal mucosa with no histopathologic abnormality (preserved villous architecture, no increase in intraepithelial lymphocytes) Esophagus, biopsy (B) - Squamous mucosa with no histopathologic abnormality - No columnar mucosa or excess intraepithelial eosinophils 05/26/2023 10:[address] [facility] Clinical History The patient is a 53-year-old woman with suspected gastroesophageal reflux disease. Endoscopic procedure/findings: esophagitis, biopsied; normal examined duodenum, biopsied. 05/26/2023 10:[address] [facility] Gross Description The specimen is identified with patient's name and date of . Received in formalin, specimen A , small bowel biopsy is a 0.5 x 0.4 x 0.2 cm wallace mucosal tissue. Entirely submitted in cassette A1. Received in formalin, specimen B , esophageal biopsy are multiple white-wallace mucosal tissues, 0.1-0.4 cm in greatest dimension and 0.9 x 0.2 x 0.1 cm aggregate. Entirely submitted in cassette B1. LJ 05/26/2023 10:[address] [facility] Microscopic Description Microscopic examination substantiates the above diagnosis. 05/26/2023 10:[address] [facility] Pathologist Location at [facility] 05/26/2023 10:[address] [facility] Disclaimer All histochemical and/or immunohistochemical results are interpreted with controls that demonstrate appropriate staining reactions before reporting results. Note on use of immunocytochemistry reagents: This test was developed and its performance characteristic determined by [facility], Department of Laboratory Medicine. It has not been cleared or approved by the U.S. Food and Drug Administration (FDA). The FDA has determined that such clearance or approval is not necessary. The test is used for clinical purpose. It should not be regarded as investigational or for research. This laboratory is certified to perform high complexity testing. The performance characteristics of the IHC/SARAH assays have been validated on formalin-fixed paraffin embedded tissues only. The assays have not been validated on decalcified tissues. Results should be interpreted with caution. 05/26/2023 10:08 AM CDT [facility] Embedded Images 05/26/2023 10:08 AM CDT [facility] Pathology/Cytology ENTEROTOMY OF SMALL BOWEL FOR BIOPSY / Unknown 05/24/2023 2:41 PM CDT 05/25/2023 7:49 AM CDT Comment:Pre-op diagnosis: Gastroesophageal reflux disease without esophagitis [K21.9] Miscellaneous samples (specimen) ESOPHAGEAL BIOPSY SPECIMEN / Unknown 05/24/2023 2:43 PM CDT 05/25/2023 7:49 AM CDT Comment:Pre-op diagnosis: Gastroesophageal reflux disease without esophagitis [K21.9] Porter Harvey MD LAB - PATHOLOGY/CYTO LOGY ORDERABLES Performing Organization Address City/[facility] Co de Phone Number [facility] [address] [place] [id number] * HELICOBACTER PYLORI UREASE (STL) (05/24/2023 2:39 PM CDT) Only the most recent of2 resultswithin the time period is included. Helicobacter pylori Urease Initial Negative Negative 05/25/2023 2:03 PM CDT [facility] Helicobacter pylori Urease Final Negative Negative 05/25/2023 2:03 PM CDT [facility] Microbiology GASTRIC BIOPSY SPECIMEN / Unknown 05/24/2023 2:39 PM CDT 05/24/2023 4:57 PM CDT Comment:Pre-op diagnosis: Gastroesophageal reflux disease without esophagitis [K21.9] Porter Harvey MD LAB - MICROBIOLOGY O RDERABLES Performing Organization Address City/[facility] Co de Phone Number [facility] [address] [place] [id number] * EGD (05/24/2023 2:29 PM CDT) Report Endoscopy POC _ Patient Name: Eran Watson Procedure Date: 05/24/2023 2:29 PM Date of : 1970 Admit Type: Outpatient Age: 53 Gender: Female Ethnicity: Not or Race: Black or Attending MD: Porter Harvey MD, [id number] _ Procedure: Upper GI endoscopy Indications: Suspected gastro-esophageal reflux disease Providers: Porter Harvey MD (Doctor), Rubia Beach RN, Deysi Duran, Narcotics And Vice Detective Referring MD: Godfrey Canales (Referring MD) Medicines: Monitored Anesthesia Care Complications: No immediate complications. _ Estimated Blood Loss: Estimated blood loss: none. Procedure: Pre-Anesthesia Assessment: - Prior to the [...] Prior Anticoagulants: The patient has taken no anticoagulant or antiplatelet agents. ASA Grade Assessment: II - A patient with mild systemic disease. After reviewing the risks and benefits, the patient was deemed in satisfactory condition to undergo the procedure. After obtaining informed consent, the endoscope was passed under direct vision. Throughout the procedure, the patient's blood pressure, pulse, and oxygen saturations were monitored continuously. The Endoscope was introduced through the mouth, and advanced to the second part of duodenum. Moderate sedation was administered for [ ' minutes The upper GI endoscopy was accomplished without difficulty. The patient tolerated the procedure well. Impression: - Non-severe reflux esophagitis with no bleeding. Biopsied. - Gastritis. Biopsied. - Normal duodenal bulb, first portion of the duodenum and second portion of the duodenum. Biopsied. Findings: Non-severe esophagitis with no bleeding was found in the lower third of the esophagus. Biopsies were taken with a cold forceps for histology. Estimated blood loss: none. Localized minimal inflammation characterized by erythema was found in the gastric antrum. Biopsies were taken with a cold forceps for Helicobacter pylori testing using CLOtest. Estimated blood loss: none. The duodenal bulb, first portion of the duodenum and second portion of the duodenum were normal. Biopsies were taken with a cold forceps for histology. _ Recommendation: - Written discharge instructions were provided to the patient. - The signs and symptoms of potential delayed complications were discussed with the patient. - Patient has a contact number available for emergencies. - Return to normal activities tomorrow. - Resume previous diet. - Follow an antireflux regimen. - food diary reduce stress consider motility study Procedure Code(s): --- Professional --- 40795, Esophagogastroduo denoscopy, flexible, transoral; with biopsy, single or multiple --- Technical --- 52892, Esophagogastroduo denoscopy, flexible, transoral; with biopsy, single or multiple Diagnosis Code(s): --- Professional --- K21.00, Gastro-esophageal reflux disease with esophagitis, without bleeding K29.70, Gastritis, unspecified, without bleeding --- Technical --- K21.00, Gastro-esophageal reflux disease with esophagitis, without bleeding K29.70, Gastritis, unspecified, without bleeding CPT copyright 2020 [employer]. All rights reserved. The codes documented in this report are preliminary and upon ball mill operator review may be revised to meet current compliance requirements. Porter Harvey MD 05/24/2023 2:47:54 PM This report has been signed electronically. Number of Addenda: 0 Note Initiated On: 05/24/2023 2:29 PM [facility] 05/24/2023 2:29 PM CDT Porter Harvey MD GI PROCEDURE ORDERAB LES Performing Organization Address City/[facility]/ZIP Co de Phone Number [facility] * HCG URINE QUALITATIVE - POCT (IP) INTERFACED (05/24/2023 1:39 PM CDT) Only the most recent of3 resultswithin the time period is included. HCG Qual Urine Negative Negative 05/24/2023 1:45 PM CDT [facility] Urine URINE / Unknown 05/24/2023 1 :39 PM CDT 05/24/2023 1:45 PM CDT Porter Harvey MD LAB - POINT OF CARE ORDERABLES [facility] [address] [place] [address] * MAMMOGRAM (06/05/2022) Only the most recent of2 resultswithin the time period is included. Anatomical Region Laterality Modality Other 06/05/2022 Narrative [...] MD (Doctor), Nabila Donaldson RN, Tati Canales, Narcotics And [employer] Detective Referring MD: Talia Álvarez MD (Referring MD) [...] pathology results. Procedure Code(s): --- Professional --- 22773, Colonoscopy, flexible; with biopsy, single or multiple --- Technical --- 91415, Colonoscopy, flexible; with biopsy, single or multiple Diagnosis Code(s): --- Professional --- K63.5, Polyp of colon Z86.010, Personal history of colonic polyps K57.30, Diverticulosis of large intestine without perforation or abscess without bleeding --- Technical --- K63.5, Polyp of colon Z86.010, Personal history of colonic polyps K57.30, Diverticulosis of large intestine without perforation or abscess without bleeding CPT copyright 2019 [employer]. All rights reserved. The codes documented in this report are preliminary and upon ball mill operator review may be revised to meet current compliance requirements. Porter Harvey MD 03/13/2021 2:52:25 PM This report has been signed electronically. Number of Addenda: 0 Note Initiated On: 03/13/2021 1:50 PM [facility] 03/13/2021 1:50 PM CDT Porter Harvey MD GI PROCEDURE ORDERAB LES [facility] * EKG 12-LEAD (06/21/2020) Only the most recent of5 resultswithin the time period is included. 06/21/2020 Talia Álvarez MD ECG ORDERABLES * MAMMOGRAPHY ORDER (04/26/2020) Only the most recent of7 resultswithin the time period is included. Anatomical Region Laterality Modality Mammography Talia Álvarez MD MAMMO ORDERABLES * LAB RESULTS ORDER (04/12/2020) Only the most recent of7 resultswithin the time period is included. Talia Álvarez MD LAB - THERAPEUTIC DR YOSSI MONITORING ORDERABLES * Simple Spirometry (01/04/2019) 01/04/2019 Talia Álvarez MD RESPIRATORY THERAPY ORDERABLES * ENDOSCOPY, COLON, DIAGNOSTIC (10/27/2018 11:30 AM CDT) Report Endoscopy POC _ Patient Name: Eran Clark Procedure Date: 10/27/2018 11:30 AM Date of : 1970 Admit Type: Outpatient Age: 48 Gender: Female Attending MD: Porter Harvey MD _ Procedure: Colonoscopy Indications: Personal history of colonic polyps Providers: Porter Harvey MD (Doctor), Rosa Solomon RN, Lisa Morin, Narcotics And Vice Detective Referring MD: Talia Álvarez MD (Referring MD) Medicines: Monitored Anesthesia Care Complications: No immediate complications. _ Procedure: Pre-Anesthesia Assessment: - ASA Grade Assessment: II - A patient with mild systemic disease. - Airway Examination: Mallampati Class I (tonsillar pillars visualized). After I obtained informed consent, the scope [...] The quality of the bowel preparation was poor. Impression: - Preparation of the colon was poor. - One 5 mm polyp in the rectum, removed with a cold biopsy forceps. Resected and retrieved. - Four 4 to 6 mm polyps in the sigmoid colon, removed with a hot snare. Resected and retrieved. Findings: A 5 mm polyp was found in the rectum. The polyp was sessile. The polyp was removed with a cold biopsy forceps. Resection and retrieval were complete. Estimated blood loss: none. Four sessile polyps were found in the sigmoid colon. The polyps were 4 to 6 mm in size. These polyps were removed with a hot snare. Resection and retrieval were complete. Estimated blood loss: none. A moderate amount of stool was found in the entire colon, making visualization difficult. Lavage of the area was performed, resulting in clearance with fair visualization. _ Recommendation: - Repeat colonoscopy in 1 year because the bowel preparation was suboptimal. Procedure Code(s): --- Professional --- 20625, Colonoscopy, flexible; with removal of tumor(s), polyp(s), or other lesion(s) by snare technique 08639, 59, Colonoscopy, flexible; with biopsy, single or multiple --- Technical --- 87674, Colonoscopy, flexible; with removal of tumor(s), polyp(s), or other lesion(s) by snare technique 03699, 59, Colonoscopy, flexible; with biopsy, single or multiple Diagnosis Code(s): --- Professional --- K62.1, Rectal polyp D12.5, Benign neoplasm of sigmoid colon Z86.010, Personal history of colonic polyps --- Technical --- K62.1, Rectal polyp D12.5, Benign neoplasm of sigmoid colon Z86.010, Personal history of colonic polyps CPT copyright 2017 [employer]. All rights reserved. The codes documented in this report are preliminary and upon ball mill operator review may be revised to meet current compliance requirements. Porter Harvey MD 10/27/2018 12:16:02 PM This report has been signed electronically. Number of Addenda: 0 Note Initiated On: 10/27/2018 11:30 AM [facility] 10/27/2018 11:3 0 AM CDT Porter Harvey MD GI PROCEDURE ORDERAB LES [facility] * EGD (10/27/2018 11:27 AM CDT) Report Endoscopy POC _ Patient Name: Eran Clark Procedure Date: 10/27/2018 11:27 AM Date of : 1970 Admit Type: Outpatient Age: 48 Gender: Female Attending MD: Porter Harvey MD _ Procedure: Upper GI endoscopy Indications: Suspected gastro-esophageal reflux disease Providers: Porter Harvey MD (Doctor), Jade Swann RN, Brook Bah Referring MD: Talia Álvarez MD (Referring MD) Medicines: Monitored Anesthesia Care Complications: No immediate complications. _ Procedure: Pre-Anesthesia Assessment: - ASA Grade Assessment: II - A patient with mild systemic disease. - Airway Examination: Mallampati Class I (tonsillar pillars visualized). After obtaining informed consent, the endoscope was passed under direct vision. Throughout the procedure, the patient's blood pressure, pulse, and oxygen saturations were monitored continuously. The Colonoscope was introduced through the mouth, and advanced to the second part of duodenum. The upper GI endoscopy was accomplished without difficulty. The patient tolerated the procedure well. Impression: - Hiatal hernia. - Gastritis. Biopsied. - A single gastric polyp. Resected and retrieved. - Normal duodenal bulb, first portion of the duodenum and second portion of the duodenum. Findings: A hiatal hernia was present. Localized mild inflammation characterized by erythema was found in the gastric antrum. Biopsies were taken with a cold forceps for Helicobacter pylori testing using CLOtest. Estimated blood loss: none. A single 5 mm sessile polyp with no stigmata of recent bleeding was found in the gastric body. The polyp was removed with a cold biopsy forceps. Resection and retrieval were complete. Estimated blood loss: none. The duodenal bulb, first portion of the duodenum and second portion of the duodenum were normal. _ Recommendation: - Follow an antireflux regimen. - Continue present medications. Procedure Code(s): --- Professional --- 90079, Esophagogastroduo denoscopy, flexible, transoral; with biopsy, single or multiple --- Technical --- 04830, Esophagogastroduo denoscopy, flexible, transoral; with biopsy, single or multiple Diagnosis Code(s): --- Professional --- K44.9, Diaphragmatic hernia without obstruction or gangrene K29.70, Gastritis, unspecified, without bleeding K31.7, Polyp of stomach and duodenum --- Technical --- K44.9, Diaphragmatic hernia without obstruction or gangrene K29.70, Gastritis, unspecified, without bleeding K31.7, Polyp of stomach and duodenum CPT copyright 2017 [employer]. All rights reserved. The codes documented in this report are preliminary and upon ball mill operator review may be revised to meet current compliance requirements. Porter Harvey MD 10/27/2018 11:54:49 AM This report has been signed electronically. Number of Addenda: 0 Note Initiated On: 10/27/2018 11:27 AM [facility] 10/27/2018 11:2 7 AM CDT Porter Harvey MD GI PROCEDURE ORDERAB LES Performing Organization Address [facility] Co de Phone Number [facility] * LIPID PROFILE W TCHOL/HDL (10/16/2017) Blood BLOOD SPECIMEN / Unknown 10/16/2017 Talia Álvarez MD LAB - CHEMISTRY NOLVIA MARTINEZ Performing Organization Address [facility] Co de Phone Number OTHER LAB * MICROALB/CREAT RATIO URINE RANDOM PANEL (10/16/2017) Urine URINE SPECIMEN OBTAINED BY CLEAN CATCH PROCEDURE / Unknown 10/16/2017 Talia Álvarez MD LAB - URINE CHEMISTR Y ORDERABLES Performing Organization Address [facility] Co de Phone Number OTHER LAB * HEMOGLOBIN A1C (10/16/2017) Whole Blood BLOOD SPECIMEN WITH EDTA / Unknown 10/16/2017 Talia Álvarez MD LAB - CHEMISTRY NOLVIA MARTINEZ Performing Organization Address [facility] Co de Phone Number OTHER LAB * COMPREHENSIVE METABOLIC PANEL (10/16/2017) Blood BLOOD SPECIMEN / Unknown 10/16/2017 Talia Álvarez MD LAB - CHEMISTRY NOLVIA ZHANNAMEGAN Performing Organization Address [facility] de Phone Number OTHER LAB * IRON + TIBC PANEL (10/16/2017) Iron 111 ug/dL OTHER LAB TIBC Direct 391 ug/dL OTHER LAB Iron Saturation % 28 % OTHER LAB Blood BLOOD SPECIMEN / Unknown 10/16/2017 Talia Álvarez MD LAB - CHEMISTRY NOLVIA MARTINEZ Performing Organization Address [facility] Co de Phone Number OTHER LAB * TSH (10/16/2017) Blood BLOOD SPECIMEN / Unknown 10/16/2017 Talia Álvarez MD LAB - CHEMISTRY NOLVIA ZHANNAMEGAN Performing Organization Address [facility] de Phone Number OTHER LAB * COMPLETE PFT (08/13/2017) Talia Álvarez MD RESPIRATORY THERAPY ORDERABLES * (ABNORMAL) LDL CHOLESTEROL (EXTERNAL RESULT ENTRY) (12/02/2015 2:29 PM CDT) Pathologist [facility] LDL Calculated (EXTERNAL RESULT) 116(H) mg/dl OUTSIDE REFERENCE LAB Blood specimen (specimen) BLOOD SPECIMEN / Unknown 12/02/2015 2:29 PM CDT Kendy Carballo MD LAB - CHEMISTRY O RDERABLES Performing Organization Address [facility] Co de Phone Number OUTSIDE REFERENCE LAB * BILIRUBIN TOTAL BLOOD (EXTERNAL RESULT ENTRY) (12/02/2015 2:20 PM CDT) Bilirubin Total (EXTERNAL RESULT) 0.4 mg/dl OUTSIDE REFERENCE LAB Blood specimen (specimen) BLOOD SPECIMEN / Unknown 12/02/2015 2:20 PM CDT Kendy Carballo MD LAB - CHEMISTRY O RDERABLES OUTSIDE REFERENCE LAB * HEMOGLOBIN A1C (EXTERNAL RESULT ENTRY) (12/02/2015 2:20 PM CDT) Hemoglobin A1c (EXTERNAL RESULT) 5.9 % OUTSIDE REFERENCE LAB Blood specimen (specimen) BLOOD SPECIMEN / Unknown 12/02/2015 2:20 PM CDT Historical Provider LAB - CHEMISTRY O RDERABLES OUTSIDE REFERENCE LAB * CREATININE BLOOD (EXTERNAL RESULT ENTRY) (12/02/2015 12:00 PM CDT) Creatinine (EXTERNAL RESULT) 0.90 mg/dl OUTSIDE REFERENCE LAB Blood specimen (specimen) BLOOD SPECIMEN / Unknown 12/02/2015 12:00 PM CDT Historical Provider LAB - CHEMISTRY O RDERABLES OUTSIDE REFERENCE LAB * US ABDOMEN LIMITED (06/07/2015) Anatomical Region Laterality Modality Abdomen Other Talia Álvarez MD US ORDERABLES * MAMMO SCREENING DIGITAL IMAGE BILAT (05/10/2015) Anatomical Region Laterality Modality Breast Bilateral Other Rosaline Jeter MD MAMMO ORDERABLES * HPV HIGH RISK W REFLEX 16/18 [...] to test SurePath(TM) have been determined by [employer]. Test Performed at: [facility] [id number] [place] [id number] REYMUNDO SAPP MD 01/03/2015 3:58 PM CDT 01/04/2015 8:00 AM CDT Rosaline Jeter MD LAB - MICROBIOLOGY O RDERABLES Performing Organization Address [facility] de Phone Number [facility] [address] [place] [address] * (ABNORMAL) PAP SMEAR IG HPV HR RFLX 16/18 (PO REF LAB) (01/03/2015 3:58 PM CDT) Clinical Information [facility] Comment:Routine exam LMP [facility] Comment:12/28/2014 Previous Pap [facility] Comment:INFORMATION NOT PROV IDED Prev. BX [facility] Comment:INFORMATION NOT PROV IDED Source [facility] Comment:Cervix, Endocervix Statement of Adequacy [facility] Comment: Satisfactory for evaluation. Endocervical/transformation zone component present. General Categorization (A) [facility] Comment:EPITHELIAL CELL ABNO RMALITY Interpretation/Resul t (A) [facility] Comment: Atypical Squamous Cells of Undetermined Significance (ASC-US) Comment [facility] Comment: This Pap test has been evaluated with computer assisted technology. Suggest clinical correlation and follow-up as clinically appropriate Corrections Caseworker [facility] Comment:JAZIEL CT(ASCP) Pathologist [facility] Comment: Dewayne Starkey M.D., Board Certified in Anatomic Pathology and Cytopathology. (electronic signature) Test Performed at: [facility] [address] [address] JAD CARVAJAL MD Miscellaneous samples (specimen) ENTIRE ENDOCERVIX / Unknown 01/03/2015 3:58 PM CDT 01/04/2015 8:00 AM CDT Rosaline Jeter MD LAB - PATHOLOGY/CYTO LOGY ORDERABLES Performing Organization Address [facility] Co de Phone Number [facility] [address] [place] [address] * CARDIAC EKG ORDER (06/13/2014) Only the most recent of2 resultswithin the time period is included. Historical Provider CARDIAC SERVICES ORDERABLES * PAP IG INV HPV RFLX MASHA (PO REF LAB) (07/20/2013 4:06 PM TRADE MARKER) Clinical Information [facility] Comment:Information not prov ided LMP [facility] Comment:INFORMATION NOT PROV IDED Previous Pap [facility] Comment:INFORMATION NOT PROV IDED Prev. BX [facility] Comment:INFORMATION NOT PROV IDED Source [facility] Comment:Information not prov ided Statement of Adequacy [facility] Comment: Satisfactory for evaluation. Endocervical/transformation zone component present. Age and/or menstrual status not provided Interpretation/Resu lt [facility] Comment:Negative for intraep ithelial lesion or malignancy. Comment [facility] Comment: This Pap test has been evaluated with computer assisted technology. Corrections Caseworker [facility] Comment:JEL CT(ASCP) Review Corrections Caseworker [facility] Comment:ABC, CT(ASCP) Human papillomavirus DNA High Risk NOT DETECTED NOT DETECTED [facility] Comment: Tested for high risk types 16,18,31,33,35,39,45,51,52, 56,58,59,68. The analytical performance characteristics of this assay, when used to test SurePath or vaginal specimens, have been determined by [employer]. Methodology: Hybrid Capture with Signal Amplification. Test Performed at: [facility] [address] JAD CARVAJAL MD 07/20/2013 4:06 PM TRADE MARKER 07/24/2013 12:41 AM TRADE MARKER Rosaline Jeter MD LAB - PATHOLOGY/CYTO LOGY ORDERABLES Performing Organization Address [facility] Co de Phone Number [address] [address] * ENDOSCOPY, COLON, SCREENING (10/07/2012 12:36 PM TRADE MARKER) Narrative [facility] - 10/07/2012 12:36 PM TRADE MARKER Procedure Note Porter Harvey MD - 10/07/2012 12:36 PM CST Porter Harvey MD GI PROCEDURE ORDERAB LES Performing Organization Address City/[facility]/ZIP Co de Phone Number [facility] * EGD (10/07/2012 12:20 PM TRADE MARKER) Narrative [facility] - 10/07/2012 12:20 PM TRADE MARKER Procedure Note Porter Harvey MD - 10/07/2012 12:20 PM CST Porter Harvey MD GI PROCEDURE ORDERAB LES Performing Organization Address City/[facility]/ZIP Co de Phone Number [facility] * HELICOBACTER PYLORI UREASE (10/07/2012 12:09 PM TRADE MARKER) Helicobacter pylori Urease Initial Negative Negative 10/08/2012 2:34 PM TRADE MARKER [facility] Helicobacter pylori Urease Final Negative Negative 10/08/2012 2:34 PM TRADE MARKER [facility] Miscellaneous samples (specimen) GASTRIC ANTRAL BIOPSY SPECIMEN / Unknown 10/07/2012 12:09 PM TRADE MARKER 10/07/2012 1:25 PM TRADE MARKER Porter Harvey MD LAB - MICROBIOLOGY O RDERABLES Performing Organization Address [facility] Co de Phone Number [facility] [address] [place] [address] * HCG URINE QUALITATIVE - POINT OF CARE (IP) (10/07/2012 11:47 AM TRADE MARKER) HCG Qual Urine negative Negative [facility] POCT TESTING QC Verified yes Yes [facility] POC T TESTING Urine specimen (specimen) URINE / Unknown 10/07/2012 11:47 AM TRADE MARKER Porter Harvey MD LAB - POINT OF CARE ORDERABLES Performing Organization Address [facility] Co de Phone Number [facility] [address] * ENDOSCOPY, COLON, SCREENING (10/07/2012) Historical Provider GI PROCEDURE ORDE RABLES * IMAGING/RADIOLOGY/XRAY RESULTS ORDER (09/13/2012) Only the most recent of2 resultswithin the time period is included. Anatomical Region Laterality Modality Other Rosaline Jeter MD IMAGING * PULMONARY/RESPIRATORY REPORT ORDER (11/27/2011) Historical Provider RESPIRATORY THERA PY ORDERABLES Care Teams Grapple Crew Leader Relationship Specialty Start Date End Date Godfrey Canales MD [address] [place] [id number] PCP - General Family Medicine 05/24/23 Talia Álvarez MD Internal Medicine 02/14/19 Yolanda Briceño MD Sheet Rock Applier Obstetrics and Gynecology 08/13/17
--- OUTSIDE RECORDS SUMMARY | 2024-09-18 12:41 | XMS_ITS | Encounter Summary ---
Author Organization [facility] Address [address] [facility] [place] [address] Care Team Providers Care Mobility Developer Name Role Phone Talia Álvarez MD Primary Care Provider [phone] Talia Álvarez MD Primary Care Provider [phone] Talia Álvarez MD Unavailable [phone] Rosaline Jeter MD Unavailable [phone] Yolanda Briceño MD Unavailable [phone] Lisa Robles MD Unavailable [phone] Pcp, Storm Martinez - Primary Care Provider Unavailable Godfrey Canales MD Primary Care Provider [phone] Encounter Details Date Type Department Care Team (Late st Contact Info) Description 07/10/2014 [facility]PT Yolanda Roman MD [facility] [address] [place] [id number] Social History Tobacco Use Types Packs/Day Years Used Date Smoking Tobacco: Never Alcohol Use Standard Drinks/Week Comments [...] on filedocumented in this encounter Care Teams Mobility Developer Relationship Specialty Start Date End Date Talia lÁvarez MD PCP - General Internal Medicine 09/16/12 02/13/19 Talia Álvarez MD PCP - General Internal Medicine 02/14/19 02/17/23 [facility] - PCP - General 02/18/23 02/18/23 Godfrey Canales MD [address] [place] [id number] PCP - General Family Medicine 05/24/23 Talia Álvarez MD Internal Medicine 02/14/19 [place] [address] [place] [address] Obstetrics and Gynecology 06/13/1408/12 Yolanda Briceño [place] [address] [place] [address] Emt P Obstetrics and Gynecology 08/13/17 Lisa Robles MD [address] [place] [address] Physician Allergy and Immunology 08/13/17 documented as of this encounter
--- OUTSIDE RECORDS SUMMARY | 2024-09-18 12:41 | XMS_ITS ---
Author Organization [facility] Address [address] [place] [address] Care Team Providers Care Supervisor Coremaker Name Role Phone Godfrey Canales Primary Care Provider UnavailLisa Clark Unavailable [phone] Danay Rivera Unavailable Unavailable Dr. Chris Ramirez Unavailable [phone] Allergies Allergen (clinical drug ingredient) Drug/Non Drug Allergy documented on EMR Reaction Allergy Type Onset Date Status penicillin Unknown Drug Allergy Active REASON FOR VISIT EMG Study 60 mins, Patient presented for EMG study. The study was completed and the report is scanned into the Documents section of the chart Medications Medication SIG (Take, Route, Frequency, Duration) Notes Start Date End Date Status FLONASE 50 mcg/inh 1 spray(s) intranasa lly once a day for 90 days Active EDNA 24 HOUR ALLERGY 180 mg 1 tab(s) orally once a day for 90 days 09/14/2017 Active EPIPEN 2-FREDERICK 0.3 mg 0.3 mg intramuscular ly once for 1 dose(s) Active ASMANEX TWISTHALER 120 DOSE 220 mcg/inh 1 puff(s) inhaled once a day (in the evening) for 30 day(s) Active SIT (CLUSTER) variable per schedule SC p er schedule for to be determined Active EPIPEN 2-FREDERICK 0.3 mg 0.3 mg intramuscular ly once for 1 dose(s) Active VENTOLIN HFA CFC free 90 mcg/inh 2 puff(s) inhaled Q4-6 hours, PRN and per the asthma action plan Active SIT (TRADITIONAL) variable per schedule SC per schedule Active PREGABALIN 100 mg 1 cap(s) orally 2 times a day As needed Active FLUTICASONE PROPIONATE 50 mcg/inh 2 spray(s) intranasally once a day for 30 day(s) Active MONTELUKAST SODIUM 10 mg 1 tab(s) orally once a day (in the evening) for 30 day(s) Active PROAIR HFA CFC free 90 mcg/inh 2 puff(s) inhaled Q4-6 hours, PRN and per the asthma action plan for 30 day(s) Active NASAL WASHES N/A as directed intranas ally as needed for 30 Active CETIRIZINE HYDROCHLORIDE 10 mg 1 tab(s) orally once a day for 30 days Active Problems Problem Type SNOMED Code ICD Code Onset Dates Problem Status W/U Status Risk Notes Problem Carpal tunnel syndrome (33334318) Carpal tunnel syndrome, bilateral upper limbs (G56.03) Active confirmed Problem Cervical radiculopathy (31002556) Radiculopathy, cervical region (M54.12) Active confirmed Problem Degeneration of cervical intervertebral disc (21091579) Other cervical disc degeneration, unspecified cervical region (M50.30) Active confirmed Vital Signs Height 64 in 12/01/2023 Encounters Encounter Location Date Provider Diagnosis [facility] [address] [place] [address] 12/01/2023 Chris Ramirez Carpal tunnel syndrome, bilateral upper limbs G56.03 ; Radiculopathy, cervical region M54.12 and Other cervical disc degeneration, unspecified cervical region M50.30 Assessments Encounter Date Diagnosis (ICD Code) Assessment Notes Treatment Notes Treatment Clinical Notes Section Notes 12/01/2023 Carpal tunnel syndrome, bilateral upper limbs (ICD-10 - G56.03) 12/01/2023 Radiculopathy, cervical region (ICD-10 - M54.12) 12/01/2023 Other cervical disc degeneration, unspecified cervical region (ICD-10 - M50.30) Plan Of Treatment No Information Progress Notes * Latesha ANDREAOB: 0 (53 yo F)Acc No.[id number]:12/01/2023 BAR ATTENDANT Neuro Patient: Rico Eran CARTER Provider: Torsten Ramirez MD :1970 A ge:53 Y S ex:Female Date:12/01/2023 Address:[address] [place], [place] [id number] Pcp:Danay Rivera Subjective: * Chief Complaints: * E MG Study 60 minsPatient presented for EMG study. The study was completed and the report is scanned into the Documents section of the chart * Medical History: * Surgical History: * Hospitalization/Major Diagno stic Procedure: * Medications: T akingpregabalin 100 mg capsule 1 cap(s) orally 2 times a day As neededVentolin HFA CFC free 90 mcg/inh aerosol 2 puff(s) inhaled Q4-6 hours, PRN and per the asthma action plan Flonase 50 mcg/inh spray 1 spray(s) intranasally once a day EpiPen 2-Frederick 0.3 mg kit 0.3 mg intramuscularly once Edna 24 Hour Allergy 180 mg tablet 1 tab(s) orally once a day SIT (cluster) variable see record per schedule SC per schedule Asmanex Twisthaler 120 Dose 220 mcg/inh aerosol powder 1 puff(s) inhaled once a day (in the evening) ProAir HFA CFC free 90 mcg/inh aerosol 2 puff(s) inhaled Q4-6 hours, PRN and per the asthma action plan Montelukast Sodium 10 mg tablet 1 tab(s) orally once a day (in the evening) Cetirizine Hydrochloride 10 mg tablet 1 tab(s) orally once a day Nasal Washes N/A 1 quart of sterilized tap water or distilled water, 1 tsp NaCl, 1 pinch of baking soda as directed intranasally as needed Fluticasone Propionate 50 mcg/inh spray 2 spray(s) intranasally once a day SIT (traditional) variable see record per schedule SC per schedule EpiPen 2-Frederick 0.3 mg kit 0.3 mg intramuscularly once Medication List reviewed and reconciled with the patientTaking pregabalin 100 mg capsule 1 cap(s) orally 2 times a day As neededTaking Ventolin HFA CFC free 90 mcg/inh aerosol 2 puff(s) inhaled Q4-6 hours, PRN and per the asthma action plan Taking Flonase 50 mcg/inh spray 1 spray(s) intranasally once a day Taking EpiPen 2-Frederick 0.3 mg kit 0.3 mg intramuscularly once Taking Edna 24 Hour Allergy 180 mg tablet 1 tab(s) orally once a day Taking SIT (cluster) variable see record per schedule SC per schedule Taking Asmanex Twisthaler 120 Dose 220 mcg/inh aerosol powder 1 puff(s) inhaled once a day (in the evening) Taking ProAir HFA CFC free 90 mcg/inh aerosol 2 puff(s) inhaled Q4-6 hours, PRN and per the asthma action plan Taking Montelukast Sodium 10 mg tablet 1 tab(s) orally once a day (in the evening) Taking Cetirizine Hydrochloride 10 mg tablet 1 tab(s) orally once a day Taking Nasal Washes N/A 1 quart of sterilized tap water or distilled water, 1 tsp NaCl, 1 pinch of baking soda as directed intranasally as needed Taking Fluticasone Propionate 50 mcg/inh spray 2 spray(s) intranasally once a day Taking SIT (traditional) variable see record per schedule SC per schedule Taking EpiPen 2-Frederick 0.3 mg kit 0.3 mg intramuscularly once Medication List reviewed and reconciled with the patient * Allergies: p enicillin: Unknownno[Allergies Verified] Objective: * Vitals: H t: 64 in. Assessment: * Assessment: 1. C arpal tunnel syndrome, bilateral upper limbs - G56.03 (Primary) 2 . R adiculopathy, cervical region - M54.12 3 . O ther cervical disc degeneration, unspecified cervical region - M50.30 Plan: * Treatment: * Procedure Codes: 9 5913 NR CNDJ TEST 13/> [id number] MUSC TEST DONE W/N TEST COMP, Units: 2.00 * Billing Information: * Visit Code: * Procedure Codes: 16353 NR CNDJ TEST 13/> STUDIES. 41383 MUSC TEST DONE W/N TEST COMP. Units: 2.00. * Sign off status: Completed true * Provider: Torsten Ramirez MD Date: 0 12/01/2023 Generated for Laura brooks/Krystle/Mario on: 0 09/18/2024 12:41 PM ELECTROLYSIS ENGINEER
--- OUTSIDE RECORDS SUMMARY | 2024-09-18 12:41 | XMS_ITS ---
Author Organization [facility] Address [address] [place] [address] Care Team Providers Care Rib Cutter Name Role Phone Godfrey Canales Primary Care Provider Unavailabl e Lisa Robles Unavailable [phone] Danay Rivera Unavailable Unavailable REASON FOR VISIT For appointment Encounters Encounter Location Date Provider Diagnosis [facility] [address] [place] [address] 11/18/2023 Lisa Robles Plan Of Treatment No Information Progress Notes * Hank RICHEYeDOB: (53 yo F)Acc No.[id number]:11/18/2023 Patient: Eran CARR :1970 A ge:53 Y S ex:Female Address:[address] [place] [address] * true * Date: Generated for Printi ng/Faxing/eTransmitting on: 0 09/18/2024 12:41 PM CAR RENTAL AGENCY MANAGER
--- OUTSIDE RECORDS SUMMARY | 2024-09-18 12:41 | XMS_ITS | Clinical Summary ---
Author Organization [facility] Address [address] [place] [address] Care Team Providers Care Metrology Technician Name Role Phone Talia Álvarez MD Unavailable [phone] Yolanda Briceño MD Unavailable Godfrey Canales MD Primary Care Provider [phone] Source Comments [facility],non-owned Affiliates and Associated Physician Practices is amultiple site organization consisting of ambulatory clinics and hospital sitesin [place], [place], [place] and [place]. This disclosure is being madepursuant to the Care Everywhere program and may not contain all information available regarding this patient. Last updated 18.[facility] Allergies Active Allergy Reactions Criticality Noted [...] LURIA, FLUZONE TRIVALENT; 6MO+) (IIV3) 05/09/2015,05/30/2014 COVID [employer] BIVALENT 12Y+ 30mcg/0.3ML 05/09/2022 Covid [place]. com. cn primary monoval ent 12+ yr 0.3mL Purple cap 08/18/2020,07/28/2020 INFLUENZA VACCINE 05/09/2021, 9,05/09/2017,2016 INFLUENZA VACCINE, QUADR. (F LUZONE; FLULAVAL; FLUARIX; AFLURIA QUADRIVALENT; 6MO+), 0.5 ML (IIV4) 05/06/2018 PNEUMOCOCCAL PPSV23 06/13/2014 TDAP (7yrs+) 06/13/2014 Zoster Hzv Vacc Recombinant Inj Im 09/05/2021, Family History Medical History Relation Name Comments Hypertension Father Diabetes Mother Cancer Paternal Grandmother colon Hypertension Sister 2 Relation Name Status Comments Brother 1 Alive x2 Brother 2 Alive Father Maternal Grandfather Maternal Grandmother Mother Alive Paternal Grandfather Paternal Grandmother Sister 1 Alive Sister 2 Sister 3 Alive Sister 4 Alive Social History Tobacco Use Types Packs/Day Years [...] 05/24/2023 1:43 PM CDT Plan of Treatment Health Maintenance Due Date Last Done Comments COLOGUARD (AGES 45-75) - COLON CA SCREENING 1970 CT COLONOGRAPHY - COLON CA SCREENING 1970 FIT - COLON CA SCREENING 1970 FLEX SIG - COLON CA SCREENING 1970 PNEUMOCOCCAL VACCINE 50+ (2 of 2 - PCV) 06/13/2015 06/13/2014 PNEUMOCOCCAL VACCINE (2 of 2 - PCV) 06/13/2015 06/13/2014 PAP with HPV 01/04/2020 01/03/2015, 07/20/2013 SCREENING FOR DIABETES 10/16/2020 8, 10/16/2017, 12/02/2015 LIPID TESTING 10/16/2022 10/16/2017, 12/02/2015 COLON MONITORING 03/13/2024 03/13/2021, 12/2020, 03/13/2021, Additional history exists Colorectal Cancer Screening 03/13/2024 COVID-19 VACCINE ( season) 2024 05/09/2022, 05/16/2021, 08/18/2020, Additional history exists INFLUENZA VACCINE (#1) 2024 , 05/09/2019, 05/06/2018, Additional history exists MAMMOGRAM 06/05/2024 06/05/2022, 05/10, 05/02/2021, Additional history exists DTAP/TDAP/TD VACCINES (2 - Td or Tdap) 06/13/2024 06/13/2014 DEPRESSION SCREENING 08/09/2024 09/05/2021 COLONOSCOPY - COLON CA SCREENING 03/13/2031 03/13/2021, 03/13/2021, 03/13/2021, Additional history exists ZOSTER VACCINE Completed 09/05/2021, 06/21/2020 HEPATITIS B VACCINE Discontinued HEPATITIS C SCREENING Discontinued HIB VACCINE Aged Out No longer eligi ble based on patient's age to complete this topic HIV SCREENING Discontinued HPV VACCINE Aged Out No longer eligi ble based on patient's age to complete this topic MENINGOCOCCAL (Group B) VACCINE Aged Out No longer eligible based on patient's age to complete this topic MENINGOCOCCAL VACCINE Aged Out No melinda hugh eligible based on patient's age to complete this topic Procedures Procedure Name Priority Date/Time Associated Diagnosis [...] MD (Doctor), Nabila Donaldson RN, Tati Canales, [place] Referring MD: Talia Álvarez MD (Referring MD) [...] pathology results. Procedure Code(s): --- Professional --- 85678, Colonoscopy, flexible; with biopsy, single or multiple --- Technical --- 26091, Colonoscopy, flexible; with biopsy, single or multiple Diagnosis Code(s): --- Professional --- K63.5, Polyp of colon Z86.010, Personal history of colonic polyps K57.30, Diverticulosis of large intestine without perforation or abscess without bleeding --- Technical --- K63.5, Polyp of colon Z86.010, Personal history of colonic polyps K57.30, Diverticulosis of large intestine without perforation or abscess without bleeding CPT copyright 2019 [employer]. All rights reserved. The codes documented in this report are preliminary and upon front end engineer review may be revised to meet current compliance requirements. Porter Harvey MD 03/13/2021 2:52:25 PM This report has been signed electronically. Number of Addenda: 0 Note Initiated On: 03/13/2021 1:50 PM [facility] 03/13/2021 1:50 PM CDT Porter Harvey MD GI PROCEDURE ORDERAB LES Performing Organization Address [facility] Co de Phone Number [facility] * LIPID PROFILE W TCHOL/HDL (10/16/2017) Blood BLOOD SPECIMEN / Unknown 10/16/2017 Talia Álvarez MD LAB - CHEMISTRY NOLVIA MARTINEZ Performing Organization Address [facility] Co de Phone Number OTHER LAB * COMPREHENSIVE METABOLIC PANEL (10/16/2017) Blood BLOOD SPECIMEN / Unknown 10/16/2017 Talia Álvarez MD LAB - CHEMISTRY NOLVIA MARTINEZ Performing Organization Address [facility] Co de Phone Number OTHER LAB * [...] to test SurePath(TM) have been determined by qunb. Test Performed at: [facility] [id number] [place] [id number] REYMUNDO SAPP MD 01/03/2015 3:58 PM CDT 01/04/2015 8:00 AM CDT Rosaline Jeter MD LAB - MICROBIOLOGY O [facility] [address] [place] [address] from Last 3 Months or Most Recently Relevant to Health Maintenance Care Teams Metrology Technician Relationship Specialty Start Date End Date Godfrey Canales MD [address] [place] [id number] PCP - General Family Medicine 05/24/23 Talia Álvarez MD Internal Medicine 02/14/19 Yolanda Briceño MD Cnc Machine Programmer Obstetrics and Gynecology 08/13/17
--- OUTSIDE RECORDS SUMMARY | 2024-09-18 12:41 | XMS_ITS | Referral Summary ---
Author Organization [facility] Address [address] [place] [address] Care Team Providers Care Waste Water Or Water Plant Operator Name Role Phone Godfrey Canales MD Primary Care Provider [phone] Encounters Date Type Department Care Team Description 07/31/2024 10:00 AM CALCULATOR OPERATOR - 07/31/2024 11:59 PM [facility] Hospital Encounter [facility] [address] [place] [address] Screening mammogram, encounter for Discharge Disposition: Discharge to home or self care from Last 3 Months Allergies Active Allergy Reactions Criticality Noted Date [...] r 10/21/2018 Palpitations 07/10/2014 Overview (11/13/2016): Palpitations Immunizations Name Administration Dates Next Due Influenza, Quadrivalent, Spl it, Preservative Free, Intramuscular 05/06/2018 Influenza, Trivalent, IM (MDV) 05/09/2015,2013 Influenza, Unspecified 05/09/2021,2018,05/09/2017,08/09 Pfizer Sars-Cov-2 Bivalent V accination (12+ YRS) 05/09/2022 Pneumococcal Polysaccharide PPV23 06/13/2014 Tdap 06/13/2014 ZOSTER Recombinant 09/05/2021,06/21/2020 Social History Tobacco Use Types Packs/Day Years Used Date Smoking Tobacco: Never Smokeless Tobacco: Never Tobacco Cessation:Counseling Given: Not Answered Alcohol Use Standard Drinks/Week Comments Yes 0 (1 standard drink = 0.6 oz pur e alcohol) Comments No Sex and Gender Information Value Date Recorded Sex Assigned at Not on file Legal Sex Female 1:13 AM CALCULATOR OPERATOR Gender Identity Not on file Sexual Orientation Not on file Last Filed Vital Signs Vital Sign Reading Time Taken Comments Blood Pressure 145/87 05/26/2024 9:35 AM CDT Pulse 77 04/26/2023 1:00 PM CDT Temperature 36.7 C (98.1 F) 10/04/2018 3:23 AM CALCULATOR OPERATOR Respiratory Rate 17 10/04/2018 6:30 PM CALCULATOR OPERATOR Oxygen Saturation 95% 04/26/2023 1:00 PM CDT Inhaled Oxygen Concentration - - Weight 93.9 kg (207 lb) 05/26/2024 9:35 AM CDT Height 162.6 cm (5' 4 ) 04/26/2023 1:00 PM CDT Body Mass Index 35.53 04/26/2023 1:00 PM CDT Plan of Treatment Not on file Procedures Procedure Name Priority Date/Time Associated Diagnosis Comments SCREENING MAMMOGRAM BILATERAL W SAÚL Schedule Routine, Read Routine (OP Routine) 07/31/2024 10:22 AM CALCULATOR OPERATOR Screening mammogram, encounter for HIGH RISK HPV DNA DETECTION WITH GENOTYPING Routine 05/26/2024 12:00 PM CDT Well woman exam with routine gynecological exam Screening for human papillomavirus Screening for cervical cancer from Last 3 Months or Most Recently Relevant to Health Maintenance Results * Screening Mammogram Bilateral W Salú (07/31/2024 10:22 AM CALCULATOR OPERATOR) Anatomical Region Laterality Modality Breast Bilateral Mammography Narrative 07/31/2024 2:56 PM CALCULATOR OPERATOR Mammogram Technique: Bilateral Digital Breast Tomosynthesis, Bilateral C-view 2D Screening mammogram. Views obtained: bilateral craniocaudal and bilateral mediolateral oblique. Computer Aided Detection was performed. Mammogram Findings: The present examination has been compared to prior imaging studies performed at [facility] on 05/02/2021, 06/05/2022 and 07/30/2023. There are [...] compared to prior imaging studies performed at [facility] on 05/02/2021, 06/05/2022 and 07/30/2023. There are [...] HPV HR 18 Not Detected Not Detected [facility] HPV HR Non 16/18 Not Detected Not Detected [facility] Comment: Interpretive Data Nucleic acid amplification for [...] this test have been verified by the [facility]. Correlate with separately reported cytology results, as applicable. Interpretive data last revised 23 Endocervical 05/26/2024 12:0 0 PM CDT 05/26/2024 5:24 PM CDT Narrative [facility] - 06/01/2024 12:04 PM CDT Clinical history and diagnosis->well woman Number of vials->1 Testing type->Screening Last menstrual period (date if known)->12/08/23 Menstrual status->Perimenopausal Yolanda Briceño MD LAB BODY FLUIDS AND ST OOLS ORDERABLES Final Result [facility] [address] [place] [address] from Last 3 Months or Most Recently Relevant to Health Maintenance Insurance [facility] H[facility]/PPO Address: [address] [place], [place] [id number] [facility] HMO/PPO Address: [address] [place] [address] [facility] HMO/PPO Address: [address] [place], [place] [id number] Care Teams Waste Water Or Water Plant Operator Relationship Specialty Start Date End Date Godfrey Canales MD PCP - General Family Practice 06/14/23
[2024-09-18 12:47] LABS: Basophils Percent Auto 0.3 % (0.2-1.2); Eosinophils Absolute Auto 0.3 K/mm3 (0-0.3); Eosinophils Percent Auto 6.8 % (0-4.4); Hematocrit 39.3 % (37.0-47.0); Hemoglobin 12.1 g/dL (12.0-15.0); Immature Granulocyte Absolute 0.01 K/mm3 (0.00-0.031); Immature Granulocyte Percent A 0.3 % (0-0.5); Lymphocytes Absolute Auto 1.88 K/mm3 (0.9-3.2); Lymphocytes Percent Auto 51.1 % (18.3-44.2); Mean Corpuscular HGB Conc 30.8 g/dl (32-36); Mean Corpuscular Hemoglobin 24.2 pg (26-34); Mean Corpuscular Volume 78.6 fl (80-100); Mean Platelet Volume 8.9 fl (7.4-10.4); Monocytes Absolute Auto 0.4 K/mm3 (0.1-0.6); Monocytes Percent Auto 9.8 % (2.6-8.5); Neutrophils Absolute Auto 1.2 K/mm3 (1.3-6.7); Neutrophils Percent Auto 31.7 % (45.5-73.1); Platelet Count Result 269 k/mm3 (150-375); Red Cell Distribution Width 15.9 % (11.5-14.5); White Blood Count 3.7 K/mm3 (4.5-10.0)
[2024-09-18 15:39] LABS: Alanine Aminotransferase 33 U/L (6-35); Albumin Level 4.2 g/dL (3.5-5.1); Alkaline Phosphatase 49 U/L (38-126); Anion Gap 7 mmol/L (4-12); Aspartate Amino Transferase 33 U/L (14-36); Bilirubin,Total 0.6 mg/dL (0.2-1.3); Blood Urea Nitrogen 21 mg/dL (7-17); Calcium 9.7 mg/dL (8.4-10.2); Carbon Dioxide 28 mmol/L (22-30); Chloride 105 mmol/L (98-107); Cholesterol 233 mg/dL (0-200); Estimated Glomerular Filt Rate > 60; Glucose 107 mg/dL (65-110); HDL Direct 77 mg/dL; Potassium 3.9 mmol/L (3.4-5.0); Sodium 140 mmol/L (137-145); Triglycerides 86 mg/dL (<150)
[2024-09-18 15:49] LABS: Total Protein Urine Random < 5 mg/dL
[2024-09-18 15:50] LABS: LDL Cholesterol Direct 117 mg/dL
[2024-09-18 15:55] LABS: Hemoglobin A1C 6.1 % (<5.7)
[2024-09-18 16:16] LABS: Creatinine Urine 141.6 mg/dL
[2024-09-18 16:20] LABS: MALB Creatinine Ratio 10.5 mg/g (0-30); Microalbumin Urine Random 14.8 mg/L (0-16.7)
== END 2024-09-18 12:26 | disposition home or self-care (01) ==
LOC: ANHLAB 12:26
PROVIDERS: Nurse Practitioner Family; Obstetrics & Gynecology; PCP Family Medicine; Visit Provider Family Medicine
DX: Z00.00 Encounter for general adult medical examination without abnormal findings (principal); I10 Essential (primary) hypertension; K21.9 Gastro-esophageal reflux disease without esophagitis; J45.909 Unspecified asthma, uncomplicated; D64.9 Anemia, unspecified; G56.00 Carpal tunnel syndrome, unspecified upper limb; K63.5 Polyp of colon; Z68.34 Body mass index [BMI] 34.0-34.9, adult; Z13.220 Encounter for screening for lipoid disorders
CPT/HCPCS: 36415; 80053; 80061; 81050; 82043; 83036; 84156; 85025

== ENCOUNTER 2025-04-30 09:30 | Outpatient (RCR) | payer OTHER, SELFPAY ==
--- NOTE | 2025-03-22 18:12 | OPREHPOC ---
Outpatient Therapy Plan of Care This is a Multidisciplinary Plan of Care that may contain components documented by all disciplines (PT, OT, and ST.) PT Problem 1 PT Problem #1 Knowledge Deficit PT Goal 1 Goal / Goal Update [place] with HEP Target Visit 4 PT Goal 2 Goal / Goal Update Report no shoulder pain greater than 1/10 for 2 consecutive weeks Target Visit 8 PT Problem 2 PT Problem #2 Impaired Range of Motion PT Goal 1 Goal / Goal Update Demonstrate 65 degrees of linda cervical rotation without thoracic pain Target Visit 8 PT Problem 3 PT Problem #3 Impaired Strength PT Goal 1 Goal / Goal Update Improve linda periscapular strength to 4/5 to improve stabilization of thoracic spine with improved mobility. Target Visit 8
--- NOTE | 2025-03-22 18:12 | PTOPEVAL1 ---
Assessment and note entered by Shaun Smith, PT Evaluation Information Assessment Status Evaluation Diagnosis M54.12 ICD-10 Condition Codes (PT) Cervicalgia M54.2 Onset February 2025 Subjective Information Reports that she has been having a muscle spasm on the right side of her neck and some numbness into the right shoulder. She has been taking muscle relaxers for pain and they seem to help a bit. She will occasionally have numbness into the hand but it has been rare at this point. She has history of issues with radiculopathy on the left side which is not present. Pain and numbness is worst in the morning and some in evening after activity. She has recently returned to lifting and working out but is unsure if that contributed. Reported Pain Level Pain Score 4: Self Report Assessment PT Clinical Summary Patient presents with pain and dysfunction of cervical and thoracic spine presenting in middle thoracic and lower cervical spine. Patient demonstrate forward head and flattened lordosis of cervical spine creating increased anterior pressure of thoracic spine. Patient will benefit form skilled therapy to address these deficits. Plan of Care Interventions Manual Therapy,Neuro Re-education,Therapeutic Activities,Therapeutic Exercise PT Services Indicated Yes Treatment Frequency and 1-2x/week for 8 visits Duration These treatments will address the objective and functional deficits as defined above. The patient will be advanced safely and appropriately in order for the patient to progress towards his/her prior level of function. Additional exercises will be introduced and as well as a comprehensive home exercise program upon discharge, if needed, ?to ensure carryover of functional gains achieved in the clinic. This treatment plan has been reviewed and agreement upon by the patient.
--- NOTE | 2025-04-23 15:25 | PCPTNOTE ---
pt did not show for today's treatment appt.
== END 2025-06-20 23:59 | disposition home or self-care (01) ==
LOC: ANHPT 09:30
PROVIDERS: PCP Family Medicine; Visit Provider Obstetrics & Gynecology
DX: M54.12 Radiculopathy, cervical region (principal); M54.2 Cervicalgia
CPT/HCPCS: 97110; 97140; 97161; 97530